=== PATIENT | female | born 1960 | race Caucasian/White ===

== ENCOUNTER 2018-09-27 14:56 | Outpatient (RCR) | payer MEDICARE, OTHER, SELFPAY | END 2018-10-11 23:59 | LOC: NS 14:56 | PROVIDERS: Family Provider Family Medicine; PCP Family Medicine; Visit Provider Family Medicine | DX: E66.01 Morbid (severe) obesity due to excess calories (principal); Z68.41 Body mass index [BMI] 40.0-44.9, adult; Z71.3 Dietary counseling and surveillance | CPT/HCPCS: 97802 ==

== ENCOUNTER 2018-10-31 10:00 | Outpatient (RCR) | payer MEDICARE, OTHER, SELFPAY | END 2018-11-11 23:59 | LOC: NS 10:00 | PROVIDERS: Family Provider Family Medicine; PCP Family Medicine; Visit Provider Family Medicine | DX: E66.01 Morbid (severe) obesity due to excess calories (principal); Z68.41 Body mass index [BMI] 40.0-44.9, adult; Z71.3 Dietary counseling and surveillance | CPT/HCPCS: 97803 ==

== ENCOUNTER → 2018-11-04 | Outpatient (CLI) | payer MEDICARE, OTHER, SELFPAY ==
--- NOTE | 2018-11-04 10:28 | RAD_ITS ---
STUDY: X-RAY - LEFT SHOULDER REASON FOR EXAM: Female, 58 years old. Right shoulder pain. TECHNIQUE: 4 view(s) of the shoulder. COMPARISON: None. FINDINGS: Normal glenohumeral articulation. Normal acromioclavicular joint. Normal acromion. Normal humeral head and visualized proximal humerus. The soft tissue structures are unremarkable. Normal visualized pulmonary apex. RAD/Shoulder min 2 Views IMPRESSION: Normal x-ray examination of the shoulder. Electronically Signed: Lee Mckeon MD at 15:56 EDT Tel , Service support ,
--- NOTE | 2018-11-04 10:28 | RAD_ITS ---
STUDY: X-RAY - CERVICAL SPINE REASON FOR EXAM: Female, 58 years old. Neck pain TECHNIQUE: 5 view(s) of the cervical spine were obtained. COMPARISON: None FINDINGS: Normal anterior atlantoaxial articulation. Normal odontoid process. Normal cervical lordosis. There is disc space narrowing at C4-C5 with anterior and posterior osteophytes. There is disc space narrowing at C6-C7 with anterior and posterior osteophytes. There is multilevel uncinate hypertrophy. There is mild multilevel foraminal narrowing. No fractures. The soft tissue structures are unremarkable. RAD/Cerv Spine 4 or 5 Views IMPRESSION: Multilevel spondylosis no acute fractures Electronically Signed: Conor Watson, at 17:45 EDT Tel , Service support ,
== END | disposition home or self-care (01) ==
LOC: HPRAD 10:27
PROVIDERS: Family Provider Family Medicine; PCP Family Medicine; Referring Provider Physician Assistant; Visit Provider Physician Assistant
DX: M25.512 Pain in left shoulder (principal)
CPT/HCPCS: 72050; 73030

== ENCOUNTER 2018-12-08 10:00 | Outpatient (RCR) | payer MEDICARE, OTHER, SELFPAY | END 2018-12-11 23:59 | LOC: NS 10:00 | PROVIDERS: Family Provider Family Medicine; PCP Family Medicine; Visit Provider Family Medicine | DX: E66.01 Morbid (severe) obesity due to excess calories (principal); Z68.41 Body mass index [BMI] 40.0-44.9, adult; Z71.3 Dietary counseling and surveillance | CPT/HCPCS: 97803 ==

== ENCOUNTER 2019-01-11 09:30 | Outpatient (RCR) | payer MEDICARE, OTHER, SELFPAY | END 2019-01-11 23:59 | LOC: NS 09:30 | PROVIDERS: Family Provider Family Medicine; PCP Family Medicine; Visit Provider Family Medicine | DX: E66.01 Morbid (severe) obesity due to excess calories (principal); Z68.41 Body mass index [BMI] 40.0-44.9, adult; Z71.3 Dietary counseling and surveillance | CPT/HCPCS: 97803 ==

== ENCOUNTER 2019-01-31 11:23 | Outpatient (RCR) | payer MEDICARE, OTHER, SELFPAY | END 2019-02-11 23:59 | LOC: NS 11:23 | PROVIDERS: Family Provider Family Medicine; PCP Family Medicine; Visit Provider Family Medicine | DX: E66.01 Morbid (severe) obesity due to excess calories (principal); Z68.41 Body mass index [BMI] 40.0-44.9, adult; Z71.3 Dietary counseling and surveillance | CPT/HCPCS: 97803 ==

== ENCOUNTER 2019-04-04 14:03 | Outpatient (RCR) | payer MEDICARE, OTHER, SELFPAY ==
[2019-03-28 15:47] VITALS: BMI 40.4
== END 2019-04-13 23:59 ==
LOC: NS 14:03
PROVIDERS: Family Provider Family Medicine; PCP Family Medicine; Visit Provider Family Medicine
DX: Z71.3 Dietary counseling and surveillance (principal); E66.01 Morbid (severe) obesity due to excess calories; Z68.41 Body mass index [BMI] 40.0-44.9, adult
CPT/HCPCS: 97803

== ENCOUNTER 2019-04-05 07:56 | Day surgery (SDC) | payer MEDICARE, OTHER, SELFPAY ==
[2019-03-28 15:47] VITALS: BMI 40.4
--- NOTE | 2019-03-29 01:03 | HP_ITS ---
Intake Vital Signs 03/28/19 Body Mass Index (BMI) 40.4 03/28/19 Height 5 ft 2 in 03/28/19 Weight: 198 lb 03/28/19 Body Mass Index (BMI) 36.2 03/28/19 Blood Pressure 121/77 H 03/28/19 Blood Pressure Location Rt brachial 03/28/19 Respiratory Rate 18 Intake Visit Reasons: change in bowel habits, hx of polyps, reflux Chief Complaint: chest pain Central Supply Clerk Required: No Is patient in pain?: No Allergies morphine Adverse Reaction (Verified 03/28/19 15:45) Vomiting Medications Clonazepam [Klonopin] 0.5 mg PO QHS PRN PRN 07/27/16 [History Confirmed 03/28/19] Prednisone 5 mg PO DAILY 07/27/16 [History Confirmed 03/28/19] cycloBENZAPRine HCl [Flexeril] 10 mg PO QHS 07/27/16 [History Confirmed 03/28/19] amlodipine 5 mg tablet 5 mg PO DAILY 03/28/19 [History Confirmed 03/28/19] bupropion HCl XL 150 mg 24 hr tablet, extended release 150 mg PO QAM 03/28/19 [History Confirmed 03/28/19] losartan 25 mg tablet 100 mg PO DAILY tab 03/28/19 [History Confirmed 03/28/19] pantoprazole 40 mg tablet,delayed release 40 mg PO DAILY #30 tab 03/28/19 [Rx Confirmed 03/28/19] PFSH Medical History Obesity (Chronic) HTN (hypertension) (Chronic) Hyperlipidemia (Chronic) Surgical History Kidney stones (Acute) S/P hysterectomy (Acute) S/P laparoscopic cholecystectomy (Acute) Family History Grandmother Breast cancer Diabetes Father Cancer Hypertension CAD (coronary artery disease) Grandfather CVA (cerebral vascular accident) Social History (Updated 03/29/19 @ 13:03 by Catalina Barron MD) Smoking Status: Never smoker alcohol intake: current alcohol intake frequency: holidays/special occasions only HPI HPI HPI: PAOLO FERGUSON, is a 58 F who presents to the office today for HPI HPI Surgical H&P: Yes HPI: PAOLO FERGUSON, is a 58 F who presents to the office today for constipation/diarrhea. Patient states that in the last month she has had some urgency with loose stools and even had fecal incontinence once 2 weeks ago. Patient states she will gets hard stools about once or twice a week which may last for a couple of days and then she will get loose stools again. Patient does try to get increase fiber she does have a high-fiber cereal and tries to get grains and every meal. Patient denies any family history of colon cancer or any history of blood in the stool. Patient last colonoscopy was in 07/2016 - will try to obtain report, pt unsure if any biopsies were done. Patient also states she has some early satiety and bloating after eating a small amount of food, and some abdominal cramping. Patient states she has had reflux for years since about 2001 has been on ranitidine at night and if she is going to be eating any spicy foods. Patient states she had an EGD was greater than 5 years ago. Patient denies any symptoms on the ranitidine. Patient does elevate the head of her bed as well. Patient also complains of some pelvic floor pain. Patient also thought she felt a bulge in the right peritoneum. Assessment & Plan Problems 1. Gastroesophageal reflux disease K21.9 2. Constipation K59.00 3. Diarrhea R19.7 Plan I have discussed the above with the patient. I have offered the patient EGD and colonoscopy for evaluation. I have explained the risks/benefits of the procedure and described the procedure. I have discussed the risks with the patient, including but not limited to: infection, bleeding, perforation of the GI tract requiring emergency surgery, inability to complete the procedure, injury to any internal organs, complications of anesthesia, etc. - the patient understands and agrees to proceed. I have answered all the patient's questions to the patient's satisfaction and the patient has no further questions. The patient has been given instructions for the colon cleansing preparation. One day of clears, MiraLAX Dulcolax split prep. Addendum: Patient's last colonoscopy was in July [address] Morris only had a small tubular adenoma about 5 mm. Catalina Barron M.D. Pager: [phone] [facility] [address] [place] [address], [facility], [address] [place] [id number] Office: [phone] Orders Orders: EGD 03/28/19 Colonoscopy Today Medications New: pantoprazole 40 mg PO DAILY 30 tabs 3RF Discontinued: ranitidine (Zantac) Discontinued Reason: Discontinued by PCP/other physicians 150 mg PO BID Plan Detail Follow Up Will schedule EGD/colonoscopy Coding Level of Care Code Off vis,new,level 3 Diagnoses Gastroesophageal reflux disease K21.9 Constipation K59.00 Diarrhea R19.7 03/29/19 1303 <Electronically signed by Catalina Snyder am, MD> Date _ Catalina Barron MD I have re-examined the patient. There are no clinical changes since date of exam.
--- NOTE | 2019-04-05 | GASB_PTH ---
PATIENT: PAOLO FERGUSON LOC: EN U#:[id number] AGE/SX: 58/F ROOM: RE04/05/[address]: Dr. Catalina Barron MD : 1960 BED: DIS: 04/05/2019 SPEC #: [id number] RECD: 04/05/19 12:12 STATUS: SHARRI JACK #: [id number] DAPHNE: 04/05/19 00:[address]: Catalina Barron DEPT: SURGICAL PATHOLOGY RECD BY: Virgilio Cheung ENTERED: 04/05/19 12:13 SP TYPE: Gastric Bx OTHR DR: Dr. Conor Luciano MD Tissues: A - Gastric mucous membrane B - Gastric fundus C - Gastric mucous membrane Procedures: Special Stain Group II Surgery Specimen Level IV Alcian Blue/PAS (control) HEADER OPERATION: [place] [place] DIAGNOSIS: GERD, constipation, diarrhea TISSUE SUBMITTED: A - Antral biopsy for H. pylori and pathology, B - Fundic lesions biopsy, C - GE junction biopsy MICROSCOPIC DIAGNOSIS A. Antral biopsy: Mild gastritis. See microscopic description and comment. B. Fundic lesions, biopsy: Mild gastritis. See microscopic description.. C. GE junction, biopsy: A fragments of gastroesophageal mucosa with moderate chronic inflammation. Intestinal metaplasia (goblet cell metaplasia) is not identified. See comment. SJ:rg 04/06/19 COMMENT A. The results of immunohistochemistry for Helicobacter pylori will be reported separately ([id number]). C. Alcian blue/PAS stain with matched control is used in the evaluation of the specimen. MICROSCOPIC DESCRIPTION Slides are reviewed. A & B. The specimen shows fragments of gastric mucosa with chronic inflammatory cell infiltrates in the lamina propria consisting of lymphocytes and plasma cells, consistent with mild chronic gastritis. GROSS DESCRIPTION A - Received in fixative is one container labeled with the patient's name and designated antral biopsy. The specimen consists of one irregular fragment of light chamorro soft tissue that measures 0.4 x 0.4 x 0.1 cm. The specimen is totally submitted in one cassette. B - Received in fixative is one container labeled with the patient's name and designated fundic lesions biopsy. The specimen consists of one irregular fragment of light chamorro soft tissue that measures 0.4 x 0.4 x 0.1 cm. The specimen is totally submitted in one cassette. C - Received in fixative is one container labeled with the patient's name and designated GE junction biopsy. The specimen consists of one irregular fragment of light chamorro soft tissue that measures 0.3 x 0.3 x 0.1 cm. The specimen is totally submitted in one cassette. / LIANET:helder 04/05/19 TC:3 CPT: 65189 x3, 01571
[2019-04-05 08:13] VITALS: BP 135/83; PULSE 76; RESP 16; TEMP 36.2; O2SAT 99; BMI 35.8
[2019-04-05] MEDS: Lactated Ringers 1,000 ML 100 ML IV (08:31)
--- NOTE | 2019-04-05 09:00 | IMM_PTH ---
PATIENT: PAOLO FERGUSON LOC: EN U#:[id number] AGE/SX: 58/F ROOM: RE04/05/[address]: Dr. Catalina Barron MD : 1960 BED: DIS: 04/05/2019 SPEC #: [id number] RECD: 04/05/19 13:12 STATUS: SHARRI REQ #: [id number] DAPHNE: 04/05/19 09:[address]: Catalina Barron DEPT: IMMUNOHISTOCHEMISTRY RECD BY: Kassidy Mendoza ENTERED: 04/05/19 13:13 SP TYPE: IMMUNO OTHR DR: Dr. Conor Luciano MD Tissues: A - Stomach, NOS Procedures: H Pylori (initial) PHYSICIAN & INSTITUTION [place] [address] SPECIMEN INFORMATION: Tissue Source: A - Antral biopsy Clinical Info: GERD, constipation, diarrhea Specimen Number: [id number] CPT code: 07681 METHODOLOGY: Deparaffinized sections of prefer/formalin-fixed tissue or PAP/DQ stained slides are incubated with monoclonal/polyclonal antibodies/oligonucleotide probes. Localization is made via biotin free immunoperoxidase method. Appropriate controls are performed and reacted as expected. Results on target cell population are indicated in the following table: RESULTS: ANTIBODY / CLONE RESULT Block A H Pylori (polyclonal) negative These tests were developed and their performance characteristics determined by [facility]. They may not have been cleared or approved by the U.S. Food and Drug Administration. The FDA has determined that such clearance or approval is not necessary. INTERPRETATION: A. Antral biopsy: Negative for Helicobacter pylori organisms. LIANET:helder 04/06/19
--- NOTE | 2019-04-05 10:13 | OP.ENDO_ITS ---
04/05/2019 Conor Luciano [address] [place] [address] [place] [address] Re : Upper GI endoscopy procedure for [facility] Dear Dr. Luciano This procedure was performed on Friday, April 05, 2019. My impressions and recommendations are as follows: Impressions : - Z-line irregular, 35 cm from the incisors. Biopsied. - Erythematous mucosa in the gastric body and antrum. Biopsied. - Bilious gastric fluid. - Discolored and white patches mucosa in the gastric fundus. Biopsied. - Normal examined duodenum. Recommendations : - Await pathology results. - Discharge patient to home. - Resume previous diet. - Recommend acid suppression medication indefinitely. - Use sucralfate tablets 1 gram PO QID for 1 month. - Continue present medications. My findings are described in the full procedure note, which is enclosed. If I can be of further assistance, please feel free to contact me at Doctor phone number(s): , Work: . Sincerely, MD Catalina Bahena MD 04/05/2019 10:12:49 AM This report has been signed electronically.
[2019-04-05 10:14] VITALS: BP 135/83; BP 98/67; PULSE 72; RESP 16; TEMP 36.4; O2SAT 95
--- NOTE | 2019-04-05 10:15 | OP.ENDO_ITS ---
04/05/2019 Conor Luciano [address] [place] [address] Re : Colonoscopy procedure for [facility] Dear Dr. Luciano This procedure was performed on Friday, April 05, 2019. My impressions and recommendations are as follows: Impressions : - Diverticulosis in the sigmoid colon. - The entire examined colon is normal on direct and retroflexion views. - No specimens collected. Recommendations : - Discharge patient to home. - Resume previous diet. - Continue present medications. - Repeat colonoscopy in 10 years for screening purposes. My findings are described in the full procedure note, which is enclosed. If I can be of further assistance, please feel free to contact me at Doctor phone number(s): , Work: . Sincerely, MD Catalina Bahena MD 04/05/2019 10:15:27 AM This report has been signed electronically.
[2019-04-05 10:20] VITALS: BP 135/83; BP 97/60; PULSE 70; RESP 16; O2SAT 99
[2019-04-05 10:25] VITALS: BP 135/83; BP 99/68; PULSE 70; RESP 16; O2SAT 97
[2019-04-05 10:30] VITALS: BP 102/66; BP 135/83; PULSE 70; RESP 16; TEMP 36.2; O2SAT 98
[2019-04-05 10:48] VITALS: BP 135/83
== END 2019-04-05 11:02 | disposition home or self-care (01) ==
LOC: EN 07:56 → AC 07:57
PROVIDERS: Family Provider Family Medicine; PCP Family Medicine; Referring Provider Family Medicine; Visit Provider Surgery
PROC: 0DJD8ZZ Inspection of Lower Intestinal Tract, Via Natural or Artificial Opening Endoscopic (ICD-10-PCS; CPT 45378; principal; 2019-04-05 08:55)
DX: K29.70 Gastritis, unspecified, without bleeding (principal); K31.89 Other diseases of stomach and duodenum; K21.9 Gastro-esophageal reflux disease without esophagitis; K57.30 Diverticulosis of large intestine without perforation or abscess without bleeding; K44.9 Diaphragmatic hernia without obstruction or gangrene; E66.9 Obesity, unspecified; Z68.36 Body mass index [BMI] 36.0-36.9, adult; I10 Essential (primary) hypertension; F41.9 Anxiety disorder, unspecified; F32.9 Major depressive disorder, single episode, unspecified; Z87.19 Personal history of other diseases of the digestive system; Z87.442 Personal history of urinary calculi; Z90.49 Acquired absence of other specified parts of digestive tract; Z79.899 Other long term (current) drug therapy
CPT/HCPCS: 43239; 45378; 88305; 88313; 88342; J7120; J2405

== ENCOUNTER → 2019-07-25 09:06 | Outpatient (CLI) | payer MEDICARE, OTHER, SELFPAY ==
[2019-07-11 15:22] VITALS: BMI 36.7
--- NOTE | 2019-07-25 09:11 | ECHOD_ITS ---
Reason For Study: Arrhythmia Procedure This was a 2D Doppler, Color Flow transthoracic echocardiogram. Exam performed in department. Left Ventricle Normal size and thickness. The estimated ejection fraction is 65 %. Normal diastology for age. No regional wall motion abnormalities noted. Right Ventricle Normal size and thickness. Normal systolic function. Atria Normal left atrium. Normal right atrium. Normal atrial septum. Mitral Valve The mitral valve is structurally normal. No prolapse or stenosis seen. Tricuspid Valve Normal tricuspid valve. Trivial tricuspid valve insufficiency. Unable to estimate RV systolic pressure due to insufficient tricuspid regurgitant envelope. Aortic Valve Normal aortic valve. Trisinus/trileaflet aortic valve. Pulmonic Valve Normal pulmonic valve. Great Vessels Normal aortic root. Normal arch. Normal inferior vena cava. Inferior vena cava collapse with sniff. Pericardium/Pleural No pericardial effusion. MMode/2D Measurements & Calculations LVIDd: 4.6 cm IVSd: 1.2 cm LA dimension: 3.7 cm LVIDs: 3.1 cm LVPWd: 1.2 cm FS: 31.7 % LAV(MOD-bp): 44.3 ml LA A4 area: 15.7 cm2 RA A4 area: 12.7 cm2 LAV(MOD-bp) Indexed: 23.3 ml/m2 LAV(MOD-sp2): 40.3 ml LAV(MOD-sp4): 44.2 ml Time Measurements MV dec time: 0.24 sec Doppler Measurements & Calculations MV E max kennedy: 93.8 cm/sec Lat Peak E' Kennedy: 8.1 cm/sec Med Peak E' Kennedy: 6.5 cm/sec MV A max kennedy: 83.0 cm/sec E/E' lat: 11.6 E/E' med: 14.5 MV E/A: 1.1 MV V2 max: 87.6 cm/sec MV P1/2t max kennedy: 88.3 cm/sec Ao V2 max: 126.6 cm/sec MV max P.1 mmHg MV P1/2t: 60.0 msec Ao max P.4 mmHg MV V2 mean: 58.5 cm/sec MV dec slope: 431.2 cm/sec2 Ao V2 mean: 84.9 cm/sec MV mean P.5 mmHg MVA(P1/2t): 3.7 cm2 Ao mean P.2 mmHg MV V2 VTI: 21.7 cm Ao V2 VTI: 23.0 cm LV V1 max: 99.2 cm/sec PA V2 max: 113.6 cm/sec LV V1 max P.9 mmHg PI dec slope: 173.8 cm/sec2 LV V1 mean P.3 mmHg LV V1 mean: 71.7 cm/sec LV V1 VTI: 21.9 cm Interpretation Summary The estimated ejection fraction is 65 %. Normal diastology for age. Trivial tricuspid valve insufficiency. Unable to estimate RV systolic pressure due to insufficient tricuspid regurgitant envelope. There is no comparison study available. Ordering Physician: Geraldo Darden Referring Physician: Conor Luciano Performed By: Amaury Ovalle RCS
[2019-07-25 10:25] LABS: Absolute Lymphocyte Count 2.67 X10^3/uL (0.83-4.51); Absolute Neutrophil Count 6.4 X10^3/uL (2.0-7.7); Basophil# 0.06 X10^3/uL; Basophil% 0.6 % (0-1); Hematocrit 45.9 % (37-47); Hemoglobin 14.7 g/dL (12.0-15.0); Lymphocyte # 2.67 X10^3/ul (4.0); Lymphocyte % 26.7 % (19-41); Mean Corpuscular Hgb 28.1 pg (27.0-32.0); Mean Corpuscular Volume 87.6 fL (81-99); Mean Platelet Vol. 9.9 fl (6.2-12.0); Monocyte# 0.68 X10^3/uL; Monocyte% 6.8 % (0-10); NRBC Flagged by Analyzer 0 % (0-5); Neutrophil # 6.37 X10^3/uL (2.7-7.7); Neutrophil % 63.6 % (47-70); Platelet Count 316 K/mm3 (150-450); RBC Distribution Width CV 13.6 % (11.6-14.6); RBC Distribution Width SD 43.6 fl (35.1-43.9); Red Blood Count 5.24 M/mm3 (4.2-5.4)
[2019-07-25 11:08] LABS: AST(SGOT) 17 U/L (15-37); Alanine Aminotransfer ALT/SGPT 43 U/L (13-56); Alkaline Phosphatase 111 U/L (45-117); Anion Gap 5 (5-15); BUN 21 mg/dL (7-18); BUN/Creat Ratio 22.5 RATIO (10-20); Bilirubin, Direct 0.11 mg/dL (0.00-0.30); Calcium,Total 9.7 mg/dL (8.5-10.1); Chloride 106 mmol/L (98-107); Cholesterol 180 mg/dL (200); Creatinine, Serum 0.94 mg/dL (0.55-1.02); EST Glomerular Filtration Rate 66 mL/min (>60); Est Glom Filt Rate - Afr Amer 79 mL/min (>60); Globulin 3.6 g/dL (2.2-4.2); Glucose 100 mg/dL (74-106); High Density Lipoprotein 85 mg/dL; Magnesium 2.3 mg/dL (1.6-2.6); Potassium 4.1 mmol/L (3.5-5.1); Protein, Total 7.6 g/dL (6.4-8.2); Sodium Level 141 mmol/L (136-145); T4 Total, Thyroxin 9.4 ug/dL (4.8-13.9); Thyroid Stim Hormone (TSH) 1.84 uIU/mL (0.358-3.74); Triglycerides 133 mg/dL; Very Low Density Lipoprotein 27 mg/dL (5-40)
== END ==
PROVIDERS: PCP Family Medicine; Referring Provider Internal Medicine Cardiovascular Disease; Visit Provider Internal Medicine Cardiovascular Disease
DX: R00.2 Palpitations (principal); E78.00 Pure hypercholesterolemia, unspecified; R42 Dizziness and giddiness
CPT/HCPCS: 36415; 80048; 80061; 80076; 83735; 84436; 84443; 85025; 93306

== ENCOUNTER 2019-08-14 13:29 | Outpatient (RCR) | payer SELFPAY ==
[2019-07-11 15:22] VITALS: BMI 36.7
== END 2019-08-14 23:59 | disposition home or self-care (01) ==
LOC: NS 13:29
PROVIDERS: PCP Family Medicine
DX: Z71.3 Dietary counseling and surveillance (principal)
CPT/HCPCS: 97803

== ENCOUNTER → 2020-01-12 09:30 | Outpatient (CLI) | payer MEDICARE, OTHER, SELFPAY ==
[2019-07-11 15:22] VITALS: BMI 36.7
--- NOTE | 2020-01-12 09:36 | MRI_ITS ---
STUDY: MRI RIGHT ANKLE WITHOUT CONTRAST REASON FOR EXAM: Chronic right arch pain, flat foot, swelling, old injury, evaluate right tibialis posterior tendon. TECHNIQUE: Standardized fat and water weighted pulse sequences were obtained in all 3 orthogonal planes. COMPARISON: None. FINDINGS: There is edema in the subcutis adipose space. There is a small ganglion cyst anterior to the deltoid ligament (T2 coronal image 18) measuring 0.7 cm in length. There is tendinosis and a longitudinal split of the perimalleolar posterior tibialis tendon (T2 axial images 14-19) with a very small volume of fluid in the posterior tibialis tendon sheath. There is flatfoot deformity. There is a very small volume of fluid in the proximal flexor digitorum longus tendon sheath (T2 axial images 12-15). The flexor digitorum longus tendon is morphologically normal. Normal flexor hallucis longus tendon. There is a very small volume of fluid in the submalleolar peroneal tendon sheath (T2 axial image 18). The peroneus longus and brevis tendons are morphologically normal. Normal tibialis anterior tendon. Normal extensor hallucis longus tendon. Normal extensor digitorum longus tendons. Normal Achilles tendon and teno-osseous insertion. There is a small posterior calcaneal enthesophyte. Normal plantar fascia. There is a plantar calcaneal enthesophyte. Normal intrinsic muscles of the rearfoot. Normal distal tibiofibular syndesmotic ligamentous complex. Normal lateral ligamentous complex. There is a ganglion cyst dorsal to the distal talus extending into the sinus tarsi (inversion recovery sagittal images 10-12) measuring 1.6 cm in AP dimension. There is mild bone edema in the calcaneus adjacent to the sinus tarsi. Normal deltoid ligamentous complexes. Normal plantar calcaneonavicular (spring) ligament. Normal tibiotalar articulation. Normal talar dome. Normal subtalar articulations. There is a small os trigonum. Normal talonavicular articulation. Normal calcaneocuboid articulation. Normal navicular-cuneiform articulations. MRI/Lower Ext Joint Only (Routine) IMPRESSION: Longitudinal split, tendinosis and very mild tenosynovitis of the posterior tibialis tendon. Very mild flexor digitorum longus tenosynovitis. Very mild peroneal tenosynovitis. Ganglion cyst dorsal to the distal talus extending into the sinus tarsi. Small ganglion cyst anterior to the deltoid ligament. Electronically Signed: Femi Roca MD at 11:25 EDT Tel , Service support ,
== END ==
PROVIDERS: PCP Family Medicine; Referring Provider Orthopaedic Surgery; Visit Provider Orthopaedic Surgery
DX: M67.971 Unspecified disorder of synovium and tendon, right ankle and foot (principal)
CPT/HCPCS: 73721

== ENCOUNTER → 2020-11-19 12:18 | Outpatient (CLI) | payer MEDICARE, OTHER, SELFPAY ==
[2020-02-14 11:09] VITALS: BMI 36.6
--- NOTE | 2020-11-19 12:30 | RAD_ITS ---
STUDY: X-RAY - ABDOMEN/PELVIS REASON FOR EXAM: Female, 60 years old. ABD PAIN TECHNIQUE: Single AP view of the abdomen / pelvis. COMPARISON: Comparison is made with prior study dated 04/06/2017. FINDINGS: Normal visualized lung bases. There is an abundance of fecal material throughout the colon. Surgical clip is seen overlying the region of the bladder. The visualized liver, spleen and kidneys are grossly normal in size and morphology. Normal soft tissue structures. Normal visualized osseous structures. RAD/Abdomen Single View IMPRESSION: Large amount of fecal material is seen in the colon. Electronically Signed: Brown House MD at 13:24 EDT , Service support ,
== END ==
PROVIDERS: PCP Family Medicine; Referring Provider Urology; Visit Provider Urology
DX: R30.0 Dysuria (principal); R10.84 Generalized abdominal pain
CPT/HCPCS: 74018; 87086

== ENCOUNTER 2021-04-14 14:52 | Outpatient (RCR) | payer MEDICARE, OTHER, SELFPAY | END 2021-05-13 23:59 | LOC: NS 14:52 | PROVIDERS: PCP Family Medicine | DX: E66.9 Obesity, unspecified (principal); Z68.38 Body mass index [BMI] 38.0-38.9, adult; Z71.3 Dietary counseling and surveillance | CPT/HCPCS: 97802 ==

== ENCOUNTER 2021-07-25 15:00 | Outpatient (RCR) | payer MEDICARE, OTHER, SELFPAY ==
--- NOTE | 2021-06-24 17:26 | HP.PTEVAL ---
Patient's Visit Information PAOLO FERGUSON is a 60 year old F referred to Physical Therapy by Dr. Brian Baker MD with a diagnosis of OA R foot and ankle, s/p hardware removal April 2021. Date of Evaluation: 06/24/21 Physical Therapist: Ramone Nugent, DPT, OCS, CSCS - Visit Plan Frequency: 2x /Week Duration: 2-4 Weeks Plan: 2x/week for 2 weeks per script...p[lease.. 1. manual therapy of STM ot R foot and ankle with mobs of DF and stretch into DF, inv/ev. 2. Teach and progress R ankle strength. 3. Ensure gait progression using forefoot on steps and pushing off during gait. Ensure weaning boot effectively. - Subjective Dr. Baker ordered therapy. One year ago did major reconstruction fusion on R ankle and plates and screws due to chronic pain including breaking heal and doing bone graft. This past May 15 he took out all the hardware due to nerve irritation casuing pain and numbness and tingling. It does feel better already. Was in boot until yesterday. Now can get rid of boot and wear regular shoe and get therapy. it feels stiff and sore from being in boot for 5 weeks. Pain this week has been to 2/10 medial ankle R and heel. Feels swollen on outside edge. Not employed. Sleep is not great due to insomnia, not ankle. Basic aDLsa re getting done. Hobbies include archery which she started this past fall, hard to get to basement where she has a range. Hard to go down steps, hard to be on feet so much. Wants to be able to camp in the summer. No ankle exercises. Is a member at [employer] and has only bee in one time lately and she did upper body. Wants to do leg machines. - Pain R medial ankle Pain Intensity (Out of 10): 0 Pain Intensity Range: 0, 2 - Objective R antalgia in gait avoiding push off until cued then does better. Steps reciprocal but avoids forefoot WB descneding onto R. AROM R ankle 0 DF, 50 PF, 20 inv and 12 ev...L ankle is 4 DF, 55 PF, 28 inv and 20 eversion. Tender to touch arch area R foot and medial ankle moderately. strength 4-/5 inv/ev/DF, PF able to do heel raise but painful in forefoot and hesitant. [id number] 2/3 patella adn achilles B. Strength B knees flexiona nd extension and hips WNL and strength at 4-/5. big toe ext adn flexion symmetrical B and 4 strength without pain. metatarsals moving well. incision not visualized as patient said it is healed well, palpated with minimal scar tissue. - Balance/Special Test Scores Lower Extremity Functional Score: 42 - Goals Goal 1:: Walk community without gait deviations Goal Time Frame: 2-4 Weeks Goal 2:: steps reciprocally with using forefoot. Goal Time Frame: 2-4 Weeks Goal 3:: Patient feel I in management of condtion Goal Time Frame: 2-4 Weeks - Rehabilitation Potential Physical Therapy Diagnosis: poor mobility due to foot history. Rehabilitation Potential: Fair - Anticipated Interventions Patient/Client Instruction: Educate patient on: Condition, Plan of Care For the Purpose of:: To decrease pain, To increase ROM, To improve muscle performance and motor function, To increase tolerance to activity/condition/position, To improve ability of physical actions for home/community/work/leisure, To improve gait and locomotor functions Therapeutic Exercise to Include: Strength training, Balance training, Flexibilty training, Gait and locomotor training, Passive ROM, Active ROM For the Purpose of:: To decrease pain, To increase ROM, To improve muscle performance and motor function, To increase tolerance to activity/condition/position, To improve ability of physical actions for home/community/work/leisure Manual Therapy Techniques to Include: Mobilization, Passive ROM, Soft tissue mobilization For the Purpose of:: To decrease pain, To increase ROM Thank you for the opportunity to evaluate your patient. For Medicare and Medicare HMO plans, please review the plan of care and approve it. It will need to be FAXED BACK to us at [phone] for Medicare purposes. For Medicare only, by signing this I certify the plan of care. Please let me know if there are questions or concerns regarding this plan of care. Physician Signature: Date:
--- NOTE | 2021-07-25 15:31 | HP.PTDCSUM ---
It has been my pleasure to treat PAOLO FERGUSON referred by Dr. Brian Baker MD, with the diagnosis of OA R foot and ankle, s/p hardware removal April 2021 for a total of 4 visit(s). Discharge Date: 07/25/21 Please see the following information for a summary of their discharge status. Subjective: Band and HEP going well and no problem, getting easier, using OTB. Curling toes has gotten easier and feels like motion is better. Morning is still a little stiff and sore until she starts moving. Puts shoes on right away. Sleep is OK as far as foot goes. Activities are pretty normal. Steps feel good. No f./u with Dr. Baker. R medial ankle Pain Intensity (Out of 10): 2 % Improvement: 85 Objective/Function: 1 DF degree,15 inv and 10 eversion on R. 4/5 strength without pain. tender 5th met mildly and some sticking scar tissue on top of foot incsision which patient will continue to work on. Walks normal. Steps reciprocal and without difficulty. SLE R 3-5 seconds vs 10+ L. overall doing well and willk continue to work on deficits at home. Goal 1:: Walk community without gait deviations Goal Progress: Goal Met Goal 2:: steps reciprocally with using forefoot. Goal Progress: Goal Met Goal 3:: Patient feel I in management of condtion Goal Progress: Goal Met Plan: d/c to HEP If there are questions or concerns regarding this patient's physical therapy, please feel free to call me at [phone]. Thank you for the referral of this patient. Sincerely, Ramone Nugent, DPT, OCS, CSCS Balance/Gait/Functional tests - Balance/Special Test Scores Lower Extremity Functional Score: 59
== END 2021-07-25 19:00 | disposition home or self-care (01) ==
LOC: PT 15:00
PROVIDERS: PCP Family Medicine; Referring Provider Orthopaedic Surgery; Visit Provider Orthopaedic Surgery
DX: M19.071 Primary osteoarthritis, right ankle and foot (principal)
CPT/HCPCS: 97110; 97140; 97161; 97164

== ENCOUNTER 2021-09-01 13:00 | Outpatient (RCR) | payer MEDICARE, OTHER, SELFPAY ==
--- NOTE | 2021-08-11 18:44 | HP.PTEVAL ---
Patient's Visit Information PAOLO FERGUSON is a 61 year old F referred to Physical Therapy by Dr. Angel Sumner MD with a diagnosis of NECK PAIN. Date of Evaluation: 08/11/21 Physical Therapist: Melinda Manrique PT, Cert MDT - Visit Plan Frequency: 2-3x /Week Duration: 4-6 Weeks Plan: CHECK AUTH AND DOCUMENT # OF VISITS APPROVED AND EXPIRATION DATE. US X 6. POSTURE CORRECTION/STRENGTHENING, INSTRUCTION IN APPROPRIATE BODY MECHANICS AND ACTIVITY MODIFICATIONS. JEFFREY UE ROM, STRETCHING AND STRENGTHENING. HEP INSTRUCTION. - Subjective Diagnosis: CERVICALGIA. Work/Leisure: UNEMPLOYEED. Disability: YES - SINCE 2014 FOR SEVERE ARTHRITIS, SJOGRENS, FIBROMYALGIA. Present symptoms: LEFT NECK, SHLD, ARM AND FOREARM PAIN. INTERMITTENT LEFT UE NUMBNESS AND TINGLING. CHRONIC HEADACHES. INTERMITTENT LEFT JAW TINGLING. Present since: CHRONIC. Pain Scale: Worst - 8/10 Least - 3/10. Currently: 10/21. Commenced as a result of: NO APPARENT REASON OTHER THAN L ARM INJURY 20 YEARS AGO FROM FALL AND ARTHRITIS. Symptoms at onset: L SHLD. Worse: LIFTING, ROLLING OVER IN BED ON L SIDE, RESTING ARM ON CONSOLE IN CAR, SHOOTING COMPOUND BOW. Better: SITTING IN A RECLINER WITH HEAD SUPPORTED AND PILLOW BEHIND SHLD, IBUPROFEN, ICE AND HEAT. Disturbed sleep: YES. Previous history/Previous treatment: CHIROPRACTOR A FEW WKS AGO FOR THE FIRST TIME AND IT MADE IT WORSE. YEARS AGO HAD SOME PT. NO NECK SURGERY. NO SHLD SX. LAST WEDNESDAY HAD INJECTIONS IN FRONT OF LEFT SHLD AND ON TOP OF L SHLD AND IT HELPED FOR ABOUT 3 DAYS THEN BACK TO BASELINE. Dizziness: ONCE IN AWHILE. Tinnitis: YES - CHRONIC. Nausea: NO. Shortness of Breath: YES - CHRONIC. Difficulty Swollowing: NO. Gait: NORMAL. Accidents: SEE FALL ABOVE. Unexplained weight loss: NO. Imaging: L SHLD AND NECK X-RAYS AND MRI'S AT [facility] ORDERED BY DR. SUMNER. PATIENT REPORTS NO SURGERY RECOMMENDED. REPORTS DR. SUMNER THINKS THE PAIN IN HER SHLD IS COMING FROM HER NECK BUT IF NOT, PATIENT REPORTS DR. SUMNER MIGHT RECOMMEND SHLD SX. PMH/Recent major surgery: FIBROMYALGIA, HTN, SJOGRENS, SEVERE ARTHRITIS. DAILY PREDNISONE USE. ANXIETY, HIGH. CHOLESTEROL. RIGHT ANKLE FUSION FEB 2020 - MAY 2021 HAD MOST OF HARDWARE REMOVED AND STARTED PT HERE AT RECENTLY AND IS NOW ON HOME PT PROGRAM. VERTIGO. 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 TRIES TO COME 3 TIMES A WEEK AND USES GYM MACHINES. STATES DR. SUMNER TOLD HER TO STAY AWAY FROM ANY HEAVY LIFTING ON UPPER BODY ON HER OWN AND TO GO THROUGH PT FOR UPPER BODY STRENGTHENING. STATES SHE IS USING BIKE AND TREADMILL ON HER OWN. ORIGINALLY GYM PROGRAM WAS SET UP BY [employer] SPECIALIST PRE-COVID. - Objective Sitting Posture/Standing Posture: POOR. FH. RSH'S. NO TORTICOLLIS. Active Correction of posture: WORSE. Other Observations: INDEP GAIT INTO PT WITHOUT ANY ASSISTIVE DEVICES OR GROSS DEVIATIONS NOTED. RODE THE BIKE BEFORE PT TODAY. Motor deficit: RIGHT HAND DOMINANT WITH A RIGHT SENIOR ELECTRONICS DESIGN ENGINEER STRENGTH OF 35 LBS AND LEFT 15 LBS. RIGHT UE GROSSLY 5/5 EXCEPT SHLD 4/5. LEFT UE GROSSLY 4/5 EXCEPT SHLD 2+/5. Sensory deficit: JEFFREY UE LIGHT TOUCH SENSATION GROSSLY INTACT AND SYMMETRICAL. ROM deficit: PROM L SHLD IN SUPINE: 134 FLEXION IN LYING AND 97 DEG ABD IN LYING. C/O INCRASED PAIN WITH TESTING. Reflexes: JEFFREY UE'S 2/3. Dural Signs: POSITIVE L UE. Cervical Mvmt Loss: Flex: NIL. Pro: NIL. Ext: MOD. Ret: CHELSEA - INCREASES L SHLD PAIN. RSB: MIN - INCRASES NECK PAIN. LSB: MIN - INCRASES NECK PAIN. R Rot: MIN. L Rot: MOD. Postural strength: POOR. Palpation: INCREASED MUSCLE TONE JEFFREY POSTERIOR CERVICAL MUSCULATURE BUT NO ACUTE NECK OR UPPER BACK TENDERNESS WITH LIGHT PALPATION. - Balance/Special Test Scores Oswestry Neck Score: 23 - Goals Goal 1:: DECREASE C/O NECK AND L UE SX'S. Goal Time Frame: 4-6 Weeks Goal 2:: IMPROVE LIFTING, READING, SLEEP, WORK, DRIVING AND RECREATIONAL FUNCTION Goal Time Frame: 4-6 Weeks Goal 3:: INSTRUCT IN PROPHYLAXIS Goal Time Frame: 4-6 Weeks - Anticipated Interventions Patient/Client Instruction: Educate patient on: Condition, Plan of Care, Risk Factors For the Purpose of:: To improve self management Therapeutic Exercise to Include: Strength training, Body mechanics, Postural training, Flexibilty training, Neuromotor development, Scapular Strength/Stabilization For the Purpose of:: To decrease pain, To improve muscle performance and motor function, To increase tolerance to activity/condition/position, To improve ability of physical actions for home/community/work/leisure TENS: Yes IF ES: Yes Cryotherapy (ice pack, ice massage): Yes Thermo therapy (hot pack): Yes Ultrasound (thermal/non thermal): Yes For the Purpose of:: To decrease pain, To improve nutrient delivery to tissue Thank you for the opportunity to evaluate your patient. For Medicare and Medicare HMO plans, please review the plan of care and approve it. It will need to be FAXED BACK to us at [phone] for Medicare purposes. For Medicare only, by signing this I certify the plan of care. Please let me know if there are questions or concerns regarding this plan of care. Physician Signature: Date:
== END 2021-09-01 19:00 | disposition home or self-care (01) ==
LOC: PT 13:00
PROVIDERS: PCP Family Medicine; Referring Provider Orthopaedic Surgery; Visit Provider Orthopaedic Surgery
DX: M54.2 Cervicalgia (principal)
CPT/HCPCS: 97035; 97162; 97530

== ENCOUNTER 2022-01-17 13:25 | Emergency (ER) | payer MEDICARE, OTHER, SELFPAY ==
[2022-01-17 13:25] VITALS: BP 154/113; PULSE 82; RESP 16; TEMP 36.6; O2SAT 100; BMI 41.3
--- NOTE | 2022-01-17 13:34 | RAD_ITS ---
STUDY: X-RAY - RIGHT HAND REASON FOR EXAM: Female, 61 years old. Pain TECHNIQUE: 3 view(s) of the hand. COMPARISON: None. FINDINGS: Normal radiocarpal articulation. Normal distal radioulnar joint. Normal visualized carpal bones. Normal carpal articulations There is degenerative arthrosis of the carpometacarpal articulation of the thumb with lateral subluxation of the first metacarpus. Normal second through fifth carpometacarpal joints. Normal metacarpi. Normal metacarpophalangeal joint of the thumb. Normal interphalangeal joint of the thumb. Normal proximal and distal phalanges of the thumb. Normal metacarpophalangeal joints of the second through fifth fingers. Normal proximal and distal interphalangeal joints of the second through fifth fingers. Normal phalanges of the second through fifth fingers. The soft tissue structures are unremarkable. RAD/Hand Min 3 Views IMPRESSION: Degenerative arthrosis of the carpometacarpal joint of the thumb. Electronically Signed: Lee Mckeon MD at 14:06 EDT ,
--- NOTE | 2022-01-17 13:35 | EX.ED.UPPERE ---
HPI History of Present Illness Chief Complaint: Upper Extremity Injury Detail of Chief Complaint: Pain and swelling to right hand and right ring finger Informant: patient Narrative Narrative: Patient presents to the emergency department sudden onset of pain in her right ring finger that occurred this morning. Patient complains of ecchymosis and bruising now. She denies any trauma to the hand. She was seen at urgent care and referred to the ER. Patient does have history of easy bruising but not on any blood thinners. [facility] Medical History (Updated 01/17/22 @ 14:[address] Vicki Eller, DO) Anxiety and depression Difficulty sleeping Dizziness Essential hypertension Fibromyalgia GERD (gastroesophageal reflux disease) Hyperlipidemia Monoarticular arthritis Obesity Palpitations Home Medications amlodipine 5 mg tablet (Norvasc) 5 mg PO DAILY 03/28/19 [History Last Taken 04/05/19 06:45 5 MG] albuterol sulfate 90 mcg/actuation aerosol inhaler (Ventolin HFA) 2 puff inhalation Q4H PRN 07/05/19 [History Last Taken Unknown] atorvastatin 10 mg tablet 10 mg PO DAILY 07/05/19 [History Last Taken Unknown] bupropion HCl 150 mg tablet,12 hr sustained-release 150 mg PO BID 07/05/19 [History Last Taken Unknown] clonazepam 0.5 mg tablet 0.5 mg PO TID PRN Anxiety 07/05/19 [History Last Taken Unknown] meclizine 25 mg tablet 25 mg PO TID PRN 07/05/19 [History Last Taken Unknown] losartan 100 mg tablet 100 mg PO DAILY 07/11/19 [History Last Taken Unknown] prednisone 5 mg tablet 5 mg PO DAILY 07/11/19 [History Last Taken Unknown] cyclobenzaprine 10 mg tablet 10 mg PO QHS PRN 02/14/20 [History Last Taken Unknown] omeprazole 20 mg capsule,delayed release 20 mg PO QHS 02/14/20 [History Last Taken Unknown] triamcinolone acetonide 0.025 % topical cream 1 applic topical .QID PRN 02/14/20 [History Last Taken Unknown] Allergy/AdvReac Type Severity Reaction Status Date / Time morphine AdvReac Vomiting Verified 02/10/21 10:50 Family History Grandmother Breast cancer Diabetes Father Cancer Hypertension CAD (coronary artery disease) Grandfather CVA (cerebral vascular accident) Surgical History Kidney stones S/P hysterectomy S/P laparoscopic cholecystectomy Social History Smoking Status: Never smoker alcohol intake: current alcohol intake frequency: holidays/special occasions only ROS ROS ED Review of Systems ROS Unobtainable: other Constitutional Constitutional ED: Reports lethargy; Denies chills, fever(s), sweats or weight loss Eyes Eyes: Denies blurry vision, change in vision or diplopia ENT ENT ED: Denies rhinorrhea or sore throat Cardiovascular Cardiovascular: Reports chest pain and racing heartbeat; Denies orthopnea Respiratory/Chest Respiratory/Chest: Reports dyspnea and dyspnea on exertion; Denies cough, orthopnea or sputum Gastrointestinal Gastrointestinal: Denies abdominal pain, diarrhea, nausea or vomiting Genitourinary Genitourinary ED: Denies dysuria, hematuria or urinary frequency Musculoskeletal Musculoskeletal: Reports other Details: Right hand pain and swelling ; Denies arthralgias, back pain, myalgias or neck pain Integumentary Denies abscess, Abrasions or rash Neurologic Neurologic: Denies headache(s) or weakness Psychiatric Psychiatric: Denies anxiety, depression or suicidal thoughts Endocrine Endocrinology: Denies polydipsia, polyphagia or polyuria Hematologic/Lymphatic Hematologic/Lymphatic: Denies easy bleeding, easy bruising or lymphadenopathy Allergic/Immunologic Allergic/Immunologic ED: Denies mouth swelling, tongue swelling or urticaria EXAM Physical Exam Const Vital Signs: 01/17/22 13:25 Temperature 98 F Temperature Source Temporal Pulse Rate 82 Respiratory Rate 16 Blood Pressure 154/113 H Blood Pressure Mean 126 Pulse Ox 100 Oxygen Delivery Method Room Air Positive well nourished and well developed General Appearance ED: well developed and NAD HEENT Reports TM's clear and moist mucous membranes normocephalic and atraumatic; Negative for trauma or tenderness Tympanic Membrane ED: Yes TM's clear Eyes PERRL and EOMs intact bilaterally General Eye ED: Negative for pale conjunctiva or scleral icterus Neck no lymphadenopathy, supple and no JVD General: Negative for tenderness Chest Wall inspection of chest normal and palpation of chest normal Chest: Negative for tenderness Resp normal respiratory effort and clear to auscultation bilaterally Effort and Inspection: Negative for respiratory distress or pain with movement Auscultation: Negative for rhonchi, wheezes or diminished lung sounds Cardio regular rate, regular rhythm, S1 normal heart sound, S2 normal heart sound and no murmurs Peripheral Pulses: pulses 2+ throughout GI normal to inspection, nondistended, normoactive bowel sounds, soft to palpation, non-tender, non-distended and no masses Back/Spine no CVA tenderness and no thoracic nor lumbar tenderness Extremity Extremity Narrative: Right hand-patient does have some soft tissue swelling about the right ring finger with some ecchymosis and bruising at the base of the proximal phalanx extending onto the dorsum of the hand MCP joint of the fourth digit as well as MCP joint of the fifth digit. Patient has some mild diffuse tenderness over the ring finger. No obvious deformity. She is neurovascular intact. General Extremety ED: Negative for edema General Extremity: Negative for edema Neuro oriented x3, CN's II-XII intact bilaterally, no sensory deficits noted and gait normal Sensorium / Orientation: awake, alert, oriented to person, oriented to place and oriented to time Motor Exam: strength 5/5 throughout and strength abnormal Psych mental status grossly normal Skin no rashes or lesions noted and no wounds MDM MDM MDM Narrative Medical decision making narrative: CBC with differential obtained was normal. Platelet count was normal. At this point I suspect patient likely had a spontaneous hemorrhage of the ring finger causing the ecchymosis and bruising and soft tissue swelling. At this point I do not feel any further treatment is indicated other than supportive care with ice to the area and Tylenol for discomfort and she is advised to avoid ibuprofen at this time. Patient will follow-up with her primary care physician for wound check in 3 to 5 days. Radiography Diagnostic Testing: Three-view x-rays of patient's right hand obtained interpreted by myself as no acute fractures. Radiology in agreement. Radiology thought she had arthritic changes at the first MCP joint of the thumb. Discharge Plan Triage Chief Complaint: Upper Extremity Injury ED Provider: Vicki Eller Dx/Rx/DC Orders Clinical Impression: Hand pain, right Instructions: Bruises (Contusions), ED Pain, Acute, Uncertain Cause Prescriptions: No Action amlodipine [Norvasc] 5 mg tablet 5 mg PO DAILY meclizine 25 mg tablet 25 mg PO TID PRN atorvastatin 10 mg tablet 10 mg PO DAILY albuterol sulfate [Ventolin HFA] 90 mcg/actuation HFA aerosol inhaler 2 puff INHALATION Q4H PRN bupropion HCl 150 mg tablet sustained-release 12 hr 150 mg PO BID losartan 100 mg tablet 100 mg PO DAILY triamcinolone acetonide 0.025 % cream 1 applic TOPICAL .QID PRN omeprazole 20 mg capsule,delayed release(DR/EC) 20 mg PO QHS clonazepam 0.5 mg tablet 0.5 mg PO TID PRN (Reason: Anxiety) prednisone 5 mg tablet 5 mg PO DAILY Label Comments: arthritis,sjogren's cyclobenzaprine 10 mg tablet 10 mg PO QHS PRN Primary Care Provider: Dakotah Coe Referrals: Dakotah Coe MD [Primary Care Provider] - 3-5 Days Disposition Disposition: Home, Self Care
[2022-01-17 14:27] LABS: Absolute Lymphocyte Count 1.77 X10^3/uL (0.83-4.51); Absolute Neutrophil Count 6.3 X10^3/uL (2.0-7.7); Basophil# 0.04 X10^3/uL; Basophil% 0.5 % (0-1); Eosinophil# 0.05 X10^3/uL; Eosinophils% 0.6 % (0-5); Hematocrit 45.4 % (37-47); Hemoglobin 14.8 g/dL (12.0-15.0); Lymphocyte # 1.77 X10^3/ul (0.83-4.51); Lymphocyte % 20.6 % (19-41); Mean Corp Hgb Conc 32.6 g/dL (32-36); Mean Corpuscular Hgb 29.5 pg (27.0-32.0); Mean Corpuscular Volume 90.4 fL (81-99); Mean Platelet Vol. 9.1 fl (6.2-12.0); Monocyte# 0.46 X10^3/uL; Monocyte% 5.3 % (0-10); NRBC Flagged by Analyzer 0 % (0-5); Neutrophil # 6.25 X10^3/uL (2.7-7.7); Neutrophil % 72.5 % (47-70); Platelet Count 276 K/mm3 (150-450); RBC Distribution Width CV 13.8 % (11.6-14.6); RBC Distribution Width SD 45.6 fl (35.1-43.9); Red Blood Count 5.02 M/mm3 (4.2-5.4); White Blood Count 8.6 K/mm3 (4.4-11.0)
[2022-01-17 15:05] VITALS: BP 129/77; PULSE 62; RESP 15; O2SAT 98
== END 2022-01-17 15:06 | disposition home or self-care (01) ==
PROVIDERS: Emergency Provider Emergency Medicine; PCP Family Medicine; Visit Provider Emergency Medicine
DX: M79.641 Pain in right hand (principal); M79.89 Other specified soft tissue disorders; E78.5 Hyperlipidemia, unspecified; I10 Essential (primary) hypertension; M79.7 Fibromyalgia; F41.9 Anxiety disorder, unspecified; F32.A Depression, unspecified; E66.9 Obesity, unspecified; Z79.899 Other long term (current) drug therapy; Z87.442 Personal history of urinary calculi; R23.3 Spontaneous ecchymoses
CPT/HCPCS: 73130; 85025; 99282

== ENCOUNTER → 2022-03-06 | Outpatient (CLI) | payer MEDICARE, OTHER, SELFPAY ==
--- NOTE | 2022-03-06 12:49 | CT_ITS ---
STUDY: CT ABDOMEN AND PELVIS WITHOUT CONTRAST REASON FOR EXAM: Female, 61 years old. CALCULUS OF KIDNEY RADIATION DOSAGE (If Supplied By Facility): CTDIvol = ( 23.60 ) mGy, DLP = ( 1108.48 ) mGycm TECHNIQUE: Transaxial images were obtained from the dome of the diaphragm to the symphysis pubis without oral contrast, and without intravenous contrast. Sagittal and coronal images were reconstructed. Individualized dose optimization techniques were used for this CT. COMPARISON: None. FINDINGS: The visualized lung bases are unremarkable. The visualized portions of the heart are within normal limits. The lack of intravenous contrast limits evaluation of solid visceral organs. Normal liver. There is non-visualization of the gallbladder, which may be secondary to either contraction or a prior cholecystectomy. Normal spleen. Normal pancreas. Normal bilateral adrenal glands. There are bilateral faint calcifications within the cortical medullary region. There are nonobstructing right renal calculi measuring up to 8 mm. Normal visualized stomach. Normal small intestine. There are multiple colonic diverticula consistent with diverticulosis. The appendix is visualized and appears normal. Normal abdominal aorta. Normal inferior vena cava. Normal retroperitoneum. Normal urinary bladder. There is a small umbilical hernia containing fat. There are diffuse degenerative changes of the visualized lumbar spine. There is a grade 1 anterior spondylolisthesis of L4 on L5. CT/Abdomen/Pelvis without Cont IMPRESSION: Nonobstructing right renal calculi measuring up to 8 mm. Bilateral medullary nephrocalcinosis. Colonic diverticulosis. Degenerative changes of the lumbar spine. Grade 1 anterior spondylolisthesis of L4 on L5. Electronically Signed: Radha Mcdaniel MD at 13:18 EDT ,
== END | disposition home or self-care (01) ==
LOC: CT 12:48
PROVIDERS: PCP Family Medicine; Referring Provider Urology; Visit Provider Urology
DX: N20.0 Calculus of kidney (principal)
CPT/HCPCS: 74176

== ENCOUNTER → 2022-04-08 | Outpatient (CLI) | payer MEDICARE, OTHER, SELFPAY ==
--- NOTE | 2022-04-08 11:49 | EKG12_ITS ---
Test Reason : PRE OP Blood Pressure : / mmHG Vent. Rate : 085 BPM Atrial Rate : 085 BPM P-R Int : 148 ms QRS Dur : 082 ms QT Int : 346 ms P-R-T Axes : 053 -35 024 degrees QTc Int : 411 ms Normal sinus rhythm Left axis deviation Low voltage QRS Abnormal ECG Confirmed by HERIBERTO TRACY, BEA ([id number]), deputy editor in chief MARVEL SOLORIO ([id number]) on 04/09/2022 10:27:51 AM Referred By: Sammy Ramos Confirmed By:BEA LOUIS MD
[2022-04-08 12:44] LABS: Hematocrit 44.8 % (37-47); Hemoglobin 14.5 g/dL (12.0-15.0); Mean Corp Hgb Conc 32.4 g/dL (32-36); Mean Corpuscular Hgb 28.9 pg (27.0-32.0); Mean Corpuscular Volume 89.4 fL (81-99); Mean Platelet Vol. 9.5 fl (6.2-12.0); Platelet Count 333 K/mm3 (150-450); RBC Distribution Width CV 13.1 % (11.6-14.6); RBC Distribution Width SD 42.8 fl (35.1-43.9); Red Blood Count 5.01 M/mm3 (4.2-5.4); White Blood Count 8.3 K/mm3 (4.4-11.0)
[2022-04-08 13:03] LABS: Anion Gap 4 (5-15); BUN 20 mg/dL (7-18); BUN/Creat Ratio 23.3 RATIO (10-20); Calcium,Total 9.3 mg/dL (8.5-10.1); Chloride 108 mmol/L (98-107); Creatinine, Serum 0.86 mg/dL (0.55-1.02); EST Glomerular Filtration Rate 72 mL/min (>60); Est Glom Filt Rate - Afr Amer 87 mL/min (>60); Glucose 112 mg/dL (74-106); Potassium 4.3 mmol/L (3.5-5.1); Sodium Level 142 mmol/L (136-145)
== END | disposition home or self-care (01) ==
LOC: PSN 11:46
PROVIDERS: PCP Family Medicine; Referring Provider Urology; Visit Provider Urology
DX: Z01.810 Encounter for preprocedural cardiovascular examination (principal); Z01.812 Encounter for preprocedural laboratory examination; R94.31 Abnormal electrocardiogram [ECG] [EKG]
CPT/HCPCS: 36415; 80048; 85027; 93005

== ENCOUNTER → 2022-04-23 | Outpatient (CLI) | payer MEDICARE, OTHER, SELFPAY ==
[2022-04-23 16:27] LABS: Erythrocyte Sedimentation Rate 9 mm/hr (0-30)
[2022-04-23 16:49] LABS: CRP 6.45 mg/L (0.0-3.0); LDH 292 U/L (84-246)
[2022-04-27 15:08] LABS: Endomysial Antibody IgA Negative (Negative)
[2022-04-27 16:11] LABS: Immunoglobulin A 136 mg/dL (87-352); t-Transglutaminase IgA <2 U/mL (0-3)
[2022-05-02 04:07] LABS: Cytoplasmic Ab (C-ANCA) <1:20 titer (Neg:<1:20); Immunoglobulin A 141 mg/dL (87-352); Immunoglobulin E 5 IU/mL (6-495); Immunoglobulin G 547 mg/dL (586-1602); Immunoglobulin M 58 mg/dL (26-217)
[2022-05-02 07:38] LABS: Perinuclear Ab (P-ANCA) <1:20 titer (Neg:<1:20)
== END | disposition home or self-care (01) ==
PROVIDERS: PCP Family Medicine; Visit Provider Nurse Practitioner Adult Health
DX: K52.9 Noninfective gastroenteritis and colitis, unspecified (principal); K62.5 Hemorrhage of anus and rectum
CPT/HCPCS: 36415; 82784; 82785; 83516; 83615; 85652; 86140; 86255; 86256

== ENCOUNTER 2022-05-13 12:10 | Outpatient (CLI) | payer MEDICARE, OTHER, SELFPAY ==
[2022-05-13 12:31] LABS: Absolute Lymphocyte Count 2.54 X10^3/uL (0.83-4.51); Absolute Neutrophil Count 4.8 X10^3/uL (2.0-7.7); Basophil# 0.05 X10^3/uL; Basophil% 0.6 % (0-1); Eosinophil# 0.25 X10^3/uL; Hematocrit 43.7 % (37-47); Hemoglobin 14.3 g/dL (12.0-15.0); Lymphocyte # 2.54 X10^3/ul (0.83-4.51); Lymphocyte % 30.2 % (19-41); Mean Corp Hgb Conc 32.7 g/dL (32-36); Mean Corpuscular Hgb 29.5 pg (27.0-32.0); Mean Corpuscular Volume 90.1 fL (81-99); Mean Platelet Vol. 9.4 fl (6.2-12.0); Monocyte# 0.72 X10^3/uL; Monocyte% 8.6 % (0-10); NRBC Flagged by Analyzer 0 % (0-5); Neutrophil % 57.1 % (47-70); Platelet Count 299 K/mm3 (150-450); RBC Distribution Width SD 42.8 fl (35.1-43.9); Red Blood Count 4.85 M/mm3 (4.2-5.4); White Blood Count 8.4 K/mm3 (4.4-11.0)
[2022-05-13 13:12] LABS: BUN 19 mg/dL (7-18); Creatinine, Serum 0.81 mg/dL (0.55-1.02); Glucose 89 mg/dL (74-106)
[2022-05-13 13:13] LABS: ALB/GLOB Ratio 1.1 RATIO (0.9-2.4); AST(SGOT) 21 U/L (15-37); Alanine Aminotransfer ALT/SGPT 53 U/L (13-56); Albumin, Serum 3.4 g/dL (3.2-5.0); Alkaline Phosphatase 95 U/L (45-117); Anion Gap 4 (5-15); BUN/Creat Ratio 23.5 RATIO (10-20); CPK Total, Creatine Kinase 104 U/L (26-192); Chloride 107 mmol/L (98-107); EST Glomerular Filtration Rate 77 mL/min (>60); Est Glom Filt Rate - Afr Amer 93 mL/min (>60); Globulin 3.1 g/dL (2.2-4.2); LDH 248 U/L (84-246); Potassium 4.2 mmol/L (3.5-5.1); Protein, Total 6.5 g/dL (6.4-8.2); Sodium Level 141 mmol/L (136-145)
[2022-05-15 10:29] LABS: Calprotectin, Stool 130 ug/g (0-120)
[2022-05-20 09:08] LABS: LDH 253 IU/L (119-226); LDH Fraction 1 15 % (17-32); LDH Fraction 2 36 % (25-40); LDH Fraction 3 23 % (17-27); LDH Fraction 4 11 % (5-13); LDH Fraction 5 15 % (4-20)
== END 2022-05-13 23:59 | disposition home or self-care (01) ==
LOC: LAB 12:14
PROVIDERS: PCP Family Medicine; Referring Provider Nurse Practitioner Adult Health; Visit Provider Nurse Practitioner Adult Health
DX: D84.821 Immunodeficiency due to drugs (principal); T38.0X5A Adverse effect of glucocorticoids and synthetic analogues, initial encounter; Z79.52 Long term (current) use of systemic steroids; K58.9 Irritable bowel syndrome, unspecified
CPT/HCPCS: 36415; 80053; 82550; 83615; 83625; 83630; 83993; 85025; 87177; 87209; 87493; 87506

== ENCOUNTER 2022-06-25 05:16 | Day surgery (SDC) | payer MEDICARE, OTHER, SELFPAY ==
[2022-06-25] MEDS: Lactated Ringers 1,000 ML 15 ML IV (05:45)
[2022-06-25 06:17] VITALS: BP 123/81; PULSE 75; RESP 16; TEMP 36.7; O2SAT 95; BMI 42.3
--- NOTE | 2022-06-25 06:30 | IMM_PTH ---
PATIENT: PAOLO FERGUSON LOC: EN U#:[id number] AGE/SX: 61/F ROOM: RE06/25/[address]: Dr. Cheng Ram DO : 1960 BED: DIS: 06/25/2022 SPEC #: [id number] RECD: 06/25/22 14:15 STATUS: SHARRI REQ #: [id number] DAPHNE: 06/25/22 06:[address]: Cheng Ram DEPT: IMMUNOHISTOCHEMISTRY RECD BY: Kassidy Mendoza ENTERED: 06/25/22 14:15 SP TYPE: IMMUNO OTHR DR: Dr. Dakotah Coe MD Tissues: B - Stomach, NOS Procedures: H Pylori (initial) PHYSICIAN & INSTITUTION [place] [id number] SPECIMEN INFORMATION: Tissue Source: B ? Gastric body biopsy Clinical Info: Screening Specimen Number: [id number] CPT code: 49739 METHODOLOGY: Deparaffinized sections of prefer/formalin-fixed tissue or PAP/DQ stained slides are incubated with monoclonal/polyclonal antibodies/oligonucleotide probes. Localization is made via biotin free immunoperoxidase method. Appropriate controls are performed and reacted as expected. Results on target cell population are indicated in the following table: RESULTS: ANTIBODY / CLONE RESULT Block B H Pylori (polyclonal) negative These tests were developed and their performance characteristics determined by [facility]. They may not have been cleared or approved by the U.S. Food and Drug Administration. The FDA has determined that such clearance or approval is not necessary. The above immunohistochemical/dualISH markers are ordered and reviewed by the Pathologist. INTERPRETATION: B. Gastric body, biopsy: Negative for Helicobacter pylori organisms. SJ:helder 06/26/2022
--- NOTE | 2022-06-25 06:30 | EGD_PTH ---
PATIENT: PAOLO FERGUSON LOC: EN U#:[id number] AGE/SX: 61/F ROOM: RE06/25/[address]: Dr. Cheng Ram DO : 1960 BED: DIS: 06/25/2022 SPEC #: [id number] RECD: 06/25/22 13:22 STATUS: SHARRI JACK #: [id number] DAPHNE: 06/25/22 06:[address]: Cheng Ram DEPT: SURGICAL PATHOLOGY RECD BY: Pennie Farfan ENTERED: 06/25/22 13:40 SP TYPE: EGD BIOPSY OT DR: Dr. Dakotah Coe MD Tissues: A - Duodenum, NOS B - Gastric mucous membrane C - Esophagus, NOS D - COLON BIOPSY Procedures: Special Stain Group II Surgery Specimen Level IV Alcian Blue/PAS (control) HEADER OPERATION: Colonoscopy, EGD (MAC), biopsy PRE-OP DIAGNOSIS: Screening TISSUE SUBMITTED: A ? Duodenum biopsy, B ? Gastric body biopsy, C ? Distal esophagus biopsy, D ? Random colonic biopsy MICROSCOPIC DIAGNOSIS A. Duodenum, biopsy: Fragments of duodenal mucosa, no pathologic diagnosis. B. Gastric body, biopsy: Mild gastritis. See microscopic description and comment. C. Distal esophagus, biopsy: Fragments of gastroesophageal mucosa with chronic inflammation. Intestinal metaplasia (goblet cell metaplasia) not identified. See comment. D. Colon, random biopsy: Fragments of colonic mucosa, no pathologic diagnosis. SJ:helder 06/26/2022 COMMENT B. The results of immunohistochemistry for Helicobacter pylori will be reported separately ([id number]). C. Alcian blue/PAS stain with matched control is used in the evaluation of the specimen. MICROSCOPIC DESCRIPTION Slides are reviewed. B. The specimen shows fragments of gastric mucosa with chronic inflammatory cell infiltrates in the lamina propria consisting of lymphocytes and plasma cells, consistent with mild chronic gastritis. GROSS DESCRIPTION A - Received in fixative is one container labeled with the patient's name and designated duodenum biopsy. The specimen consists of two irregular fragments of light chamorro soft tissue that in aggregate measure 0.6 x 0.3 x 0.1 cm. The specimen is totally submitted in one cassette. B - Received in fixative is one container labeled with the patient's name and designated gastric body biopsy. The specimen consists of multiple irregular fragments of light chamorro soft tissue that in aggregate measure 0.9 x 0.9 x 0.1 cm. The specimen is totally submitted in one cassette. C - Received in fixative is one container labeled with the patient's name and designated distal esophagus biopsy. The specimen consists of multiple irregular fragments of light chamorro soft tissue that in aggregate measure 1 x 0.3 x 0.1 cm. The specimen is totally submitted in one cassette. D - Received in fixative is one container labeled with the patient's name and designated random colonic biopsy. The specimen consists of multiple irregular fragments of light chamorro soft tissue that in aggregate measure 2 x 0.5 x 0.1 cm. The specimen is totally submitted in one cassette. / SJ:rg 06/25/2022 TC:3 CPT: 91085 x4, 82254
--- NOTE | 2022-06-25 06:34 | HP.PCM_ITS ---
History and Physical Date of Admission: 06/25/22 61 F who presents to the office today for new consult for urgent diarrhea 15-30 min after eating. Occurs after every meal. Happens at home, but even moreso when out to eat. She hasn't been able to determine if certain foods are problematic. Began years ago but worse for past 6-12 mos. Gets bad abd cramping before the diarrhea. Has had a couple of diarrheal episodes with blood clots in the toilet since August 2021. She feels weak and exhausted after those episodes. While waiting to get in to see us she saw resident manager Dr Abraham, but wants to transfer care here. Has hyoscyamine and colestipol. Taking colestipol once a day, but has constipation now. Hyoscyamine some help with pain. He had her stop coffee, used to have 3-4 cups of coffee per day. On acid retail customer service representative since 2000. She takes omeprazole 20 mg at HS, sometimes takes a second dose in the night. Sleeps with HOB elevated. Random difficulty swallowing, feels like a spasm in the esophagus, food or liquid gets stuck temporarily until spasm passes. Intermittent nausea, can wake up with it in the morning, better with tea and crackers. No vomiting. Gets full quicker than she used to. Before Covid she did [facility] program here at the hospital, and went to gym at [facility]. Frustrated that she has now gained the weight back. Arthritis has flared up recently. Pain mgmt is trying to get Lyrica for her. She has DDD in neck and back. Has OA. She sees a malt house operator for Sjogren's, osteoporosis, trying to get her off prednisone which she has been on for approx 10 yrs. Prednisone mainly for Sjogren's. 04/05/19 egd and colonoscopy--bilious gastric fluid, multiple small mouthed diverticula She reports previous tubular adenoma. Hx cholecystectomy, hysterectomy, recent lithotripsy for renal stone CT abd pel w/o contrast ordered by urologist 03/06/22--diverticulosis 09/04/21 TSH 1.39 09/17/21 Hgb a1c 5.5 ROS Const Constitutional: Positive for fatigue and weight change ENT ENT: No difficulty swallowing Gastro GI: No abdominal pain, belching, bloating, change in bowel habits, change in stool character, coffee ground emesis, constipation, cramping, diarrhea, heartburn, difficulty swallowing, feeling full early, excessive flatus, incontinent of stools, Vomiting blood/hematemesis, Blood in stool, loose stools, Black,tarry stools, nausea/dyspepsia, pain with swallowing, vomiting or other Musc Musculoskeletal: No joint pain Skin Skin: No yellowing of the eye or itchy eyes Psych Psychiatric: No anxiety and No depression Endo Endocrine: Positive for fatigue and weight change Aller/Imm Allergy/Immunologic: No itchy eyes Clarence/Lymp Hematologic/Lymphatic: No easy bleeding or easy bruising Exam Const General: cooperative and no acute distress Nutritional Appearance: obese Orientation: alert, awake and oriented x3 HENMT Head: normal to inspection Eyes General: appearance normal, both eyes and all related structures Resp Effort & Inspection: normal respiratory effort GI Palpation: soft, no hepatosplenomegaly, no masses and tender in the epigastrum, in the RLQ, in the LUQ and in the RUQ Skin General: no rashes or lesions noted Neuro Gait: normal gait Quality Reporting Tobacco Screening ([facility] 138) Smoking Status: Never smoker Assessment and Plan Assessment and Plan (1) Chronic diarrhea: ?Status:?Chronic ?Plan: 61 yr old female with chronic diarrhea, abdominal cramping pain, episodes of rectal bleeding, refractory GERD, esophageal spasms. DDx includes bile acid gastritis/diarrhea, IBD, infection, microscopic colitis, SCAD, malignancy. For dysphagia/spasms, we discussed possible esophageal manometry (she prefers to wait on that), esophagram. May be due to Sjogen's. Consider gastric emptying study to eval for gastroparesis as cause of refractory acid reflux, bile acid in stomach Recent CT w/o contrast, we may need to get a CT w/ oral and IV contrast Labs: blood and stool tests to evaluate inflammation, infection, autoimmune EGD and colonoscopy w/ office f/u afterwards Dicyclomine 10 mg bid, stop hyoscyamine, stop colestipol since it's causing constipation (2) Rectal bleed: ?Status:?Acute ?Plan: as above (3) Dysphagia: ?Status:?Acute ? ? ? Orders: Orders CRP Today K52.9 - Noninfective gastroenteritis and colitis, unspecified ? LDH Today K52.9 - Noninfective gastroenteritis and colitis, unspecified ? Erythrocyte Sed Rate Today K52.9 - Noninfective gastroenteritis and colitis, unspecified ? Calprotectin, Stool Today K52.9 - Noninfective gastroenteritis and colitis, unspecified ? Ova and Parasites 8623 Today K52.9 - Noninfective gastroenteritis and colitis, unspecified, K58.9 - Irritable bowel syndrome without diarrhea ? CDIFF (PCR) Today K52.9 - Noninfective gastroenteritis and colitis, unspecified ? ENTERIC PATHOGEN PANEL STOOL Today D84.821 - Immunodeficiency due to drugs, K52.9 - Noninfective gastroenteritis and colitis, unspecified, K58.9 - Irritable bowel syndrome without diarrhea, T38.0X5A - Adverse effect of glucocorticoids and synthetic analogues, initial encounter, Z79.52 - watermaster (current) use of systemic steroids ? Stool Lactoferrin/WBC Today K52.9 - Noninfective gastroenteritis and colitis, unspecified ? ANCA Today K52.9 - Noninfective gastroenteritis and colitis, unspecified ? Celiac Disease Profile Today K52.9 - Noninfective gastroenteritis and colitis, unspecified ? Immunoglobulins G/A/M/E Today K52.9 - Noninfective gastroenteritis and colitis, unspecified ? Miscellaneous Lab Procedure Today K52.9 - Noninfective gastroenteritis and colitis, unspecified, K62.5 - Hemorrhage of anus and rectum ? I have examined the patient and the H&P has been reviewed. There are no clinical changes since date of exam.
[2022-06-25 07:10] VITALS: BP 109/70; BP 123/81; PULSE 76; RESP 16; TEMP 36.9; O2SAT 96
--- NOTE | 2022-06-25 07:11 | OP.EGD_ITS ---
Patient Name: Catrina Dowell Procedure Date: 06/25/2022 6:15 AM Date of : 1960 Age: 61 Procedure: Upper GI endoscopy Indications: Epigastric abdominal pain, Functional Dyspepsia Providers: Cheng Ram DO Medicines: Monitored Anesthesia Care Patient Profile: This is a 61 year old female. Refer to note in patient chart for documentation of history and physical. Patient has symptoms of chronic abdominal cramping and chronic epigastric abdominal pain. Complications: No immediate complications. Procedure: Pre-Anesthesia Assessment: - Prior to the procedure, a History and Physical was performed, and patient medications and allergies were reviewed. The risks and benefits of the procedure and the sedation options and risks were discussed with the patient. All questions were answered and informed consent was obtained. Patient identification and proposed procedure were verified by the physician in the pre-procedure area. Mental Status Examination: alert and oriented. Airway Examination: normal oropharyngeal airway and neck mobility. Respiratory Examination: clear to auscultation. CV Examination: normal. Prophylactic Antibiotics: The patient does not require prophylactic antibiotics. Prior Anticoagulants: The patient has taken no previous anticoagulant or antiplatelet agents. ASA Grade Assessment: II - A patient with mild systemic disease. After reviewing the risks and benefits, the patient was deemed in satisfactory condition to undergo the procedure. The anesthesia plan was to use deep sedation / analgesia. Immediately prior to administration of medications, the patient was re-assessed for adequacy to receive sedatives. The heart rate, respiratory rate, oxygen saturations, blood pressure, adequacy of pulmonary ventilation, and response to care were monitored throughout the procedure. The physical status of the patient was re-assessed after the procedure. After obtaining informed consent, the endoscope was passed under direct vision. Throughout the procedure, the patient's blood pressure, pulse, and oxygen saturations were monitored continuously. The Colonoscope was introduced through the mouth, and advanced to the second part of duodenum. The upper GI endoscopy was accomplished without difficulty. The patient tolerated the procedure well. Scope In: 6:39:03 AM Scope Out: 6:43:31 AM Total Procedure Duration Time 0 hours 4 minutes 28 seconds Findings: The Z-line was irregular and was found 39 cm from the incisors. Biopsies were taken with a cold forceps for histology. Verification of patient identification for the specimen was done. Estimated blood loss was minimal. A medium-sized hiatal hernia was present. Patchy moderate inflammation characterized by congestion (edema), erosions and erythema was found in the gastric body. Biopsies were taken with a cold forceps for histology. Verification of patient identification for the specimen was done. Estimated blood loss was minimal. No gross lesions were noted in the second portion of the duodenum. Biopsies were taken with a cold forceps for histology. Verification of patient identification for the specimen was done. Estimated blood loss was minimal. Impression: - Z-line irregular, 39 cm from the incisors. Biopsied. - Medium-sized hiatal hernia. - Gastritis. Biopsied. - No gross lesions in the second portion of the duodenum. Biopsied. Recommendation: - Discharge patient to home. - Resume previous diet. - Continue present medications. - Await pathology results. Procedure Code(s): --- Professional --- 76658, Esophagogastroduodenoscopy, flexible, transoral; with biopsy, single or multiple CPT copyright 2017 [employer]. All rights reserved. The codes documented in this report are preliminary and upon proced tech review may be revised to meet current compliance requirements. Cheng Ram DO 06/25/2022 7:10:19 AM This report has been signed electronically. Number of Addenda: 0 Note Initiated On: 06/25/2022 6:15 AM
--- NOTE | 2022-06-25 07:11 | OP.CCLET_ITS ---
06/25/2022 Dakotah Coe Re : Upper GI endoscopy procedure for Catrina Coe This procedure was performed on June. My impressions and recommendations are as follows: Impressions : - Z-line irregular, 39 cm from the incisors. Biopsied. - Medium-sized hiatal hernia. - Gastritis. Biopsied. - No gross lesions in the second portion of the duodenum. Biopsied. Recommendations : - Discharge patient to home. - Resume previous diet. - Continue present medications. - Await pathology results. My findings are described in the full procedure note, which is enclosed. If I can be of further assistance, please feel free to contact me at . Sincerely, Cheng Ram, 06/25/2022 7:10:19 AM This report has been signed electronically.
--- NOTE | 2022-06-25 07:14 | OP.CCLET_ITS ---
06/25/2022 Dakotah Coe Re : Colonoscopy procedure for Catrina Coe This procedure was performed on June. My impressions and recommendations are as follows: Impressions : - Decreased sphincter tone found on digital rectal exam. - Diverticulosis in the recto-sigmoid colon, in the sigmoid colon, in the descending colon, at the splenic flexure and in the transverse colon. - Significant colonic spasm consistent with irritable bowel syndrome. - Congested mucosa in the sigmoid colon, in the descending colon and in the ascending colon. Biopsied. Recommendations : - Discharge patient to home. - Resume previous diet. - Continue present medications. - Await pathology results. - Repeat colonoscopy in 10 years for screening purposes. My findings are described in the full procedure note, which is enclosed. If I can be of further assistance, please feel free to contact me at . Sincerely, Cheng Ram, 06/25/2022 7:13:50 AM This report has been signed electronically.
--- NOTE | 2022-06-25 07:14 | OP.COLON_ITS ---
Patient Name: Catrina Dowell Procedure Date: 06/25/2022 6:43 AM Date of : 1960 Age: 61 Procedure: Colonoscopy Indications: Screening for colorectal malignant neoplasm Providers: Cheng Ram DO Medicines: Monitored Anesthesia Care Patient Profile: This is a 61 year old female. Refer to note in patient chart for documentation of history and physical. Patient has symptoms of chronic abdominal cramping and chronic epigastric abdominal pain. Last Colonoscopy: several years ago. Complications: No immediate complications. Procedure: Pre-Anesthesia Assessment: - Prior to the procedure, a History and Physical was performed, and patient medications and allergies were reviewed. The risks and benefits of the procedure and the sedation options and risks were discussed with the patient. All questions were answered and informed consent was obtained. Patient identification and proposed procedure were verified by the physician in the pre-procedure area. Mental Status Examination: alert and oriented. Airway Examination: normal oropharyngeal airway and neck mobility. Respiratory Examination: clear to auscultation. CV Examination: normal. Prophylactic Antibiotics: The patient does not require prophylactic antibiotics. Prior Anticoagulants: The patient has taken no previous anticoagulant or antiplatelet agents. ASA Grade Assessment: II - A patient with mild systemic disease. After reviewing the risks and benefits, the patient was deemed in satisfactory condition to undergo the procedure. The anesthesia plan was to use deep sedation / analgesia. Immediately prior to administration of medications, the patient was re-assessed for adequacy to receive sedatives. The heart rate, respiratory rate, oxygen saturations, blood pressure, adequacy of pulmonary ventilation, and response to care were monitored throughout the procedure. The physical status of the patient was re-assessed after the procedure. After I obtained informed consent, the scope was passed under direct vision. Throughout the procedure, the patient's blood pressure, pulse, and oxygen saturations were monitored continuously. The Colonoscope was introduced through the anus and advanced to the terminal ileum. The colonoscopy was performed without difficulty. The patient tolerated the procedure well. The quality of the bowel preparation was good. Scope In: 6:46:21 AM Scope Withdrawal Time 0 hours 12 minutes 18 seconds Scope Out: 7:03:47 AM Total Procedure Duration Time 0 hours 17 minutes 26 seconds Findings: The digital rectal exam findings include decreased sphincter tone. Multiple small and large-mouthed diverticula were found in the recto-sigmoid colon, sigmoid colon, descending colon, splenic flexure and transverse colon. There was significant spasm in the sigmoid colon. An area of mildly congested mucosa was found in the sigmoid colon, in the descending colon and in the ascending colon. Biopsies were taken with a cold forceps for histology. Verification of patient identification for the specimen was done. Estimated blood loss was minimal. Impression: - Decreased sphincter tone found on digital rectal exam. - Diverticulosis in the recto-sigmoid colon, in the sigmoid colon, in the descending colon, at the splenic flexure and in the transverse colon. - Significant colonic spasm consistent with irritable bowel syndrome. - Congested mucosa in the sigmoid colon, in the descending colon and in the ascending colon. Biopsied. Recommendation: - Discharge patient to home. - Resume previous diet. - Continue present medications. - Await pathology results. - Repeat colonoscopy in 10 years for screening purposes. Procedure Code(s): --- Professional --- 91703, Colonoscopy, flexible; with biopsy, single or multiple CPT copyright 2017 [employer]. All rights reserved. The codes documented in this report are preliminary and upon outpatient coder review may be revised to meet current compliance requirements. Cheng Ram DO 06/25/2022 7:13:50 AM This report has been signed electronically. Number of Addenda: 0 Note Initiated On: 06/25/2022 6:43 AM
[2022-06-25 07:15] VITALS: BP 108/76; BP 123/81; PULSE 76; RESP 16; O2SAT 94
[2022-06-25 07:20] VITALS: BP 106/73; BP 123/81; PULSE 73; RESP 16; O2SAT 94
[2022-06-25 07:25] VITALS: BP 116/73; BP 123/81; PULSE 70; RESP 16; TEMP 36.6; O2SAT 96
[2022-06-25 07:45] VITALS: BP 123/81
== END 2022-06-25 08:02 | disposition home or self-care (01) ==
LOC: EN 05:19 → AC 05:19
PROVIDERS: PCP Family Medicine; Referring Provider Family Medicine; Visit Provider Internal Medicine Gastroenterology
PROC: 0DJD8ZZ Inspection of Lower Intestinal Tract, Via Natural or Artificial Opening Endoscopic (ICD-10-PCS; CPT 45378; principal; 2022-06-25 06:25)
DX: Z12.11 Encounter for screening for malignant neoplasm of colon (principal); D84.821 Immunodeficiency due to drugs; M35.00 Sjogren syndrome, unspecified; K29.70 Gastritis, unspecified, without bleeding; K44.9 Diaphragmatic hernia without obstruction or gangrene; K63.89 Other specified diseases of intestine; R13.10 Dysphagia, unspecified; K57.30 Diverticulosis of large intestine without perforation or abscess without bleeding; Z86.16 Personal history of COVID-19; M81.0 Age-related osteoporosis without current pathological fracture; K52.9 Noninfective gastroenteritis and colitis, unspecified; Z79.52 Long term (current) use of systemic steroids
CPT/HCPCS: 43239; 45380; 88305; 88313; 88342; J7120; J2405

== ENCOUNTER 2022-08-08 20:14 | Emergency (ER) | payer MEDICARE, OTHER, SELFPAY ==
[2022-08-08 20:14] VITALS: BP 149/90; PULSE 106; RESP 15; TEMP 37.2; O2SAT 98; BMI 42.6
--- NOTE | 2022-08-08 20:28 | EKG12_ITS ---
Test Reason : CP Blood Pressure : / mmHG Vent. Rate : 095 BPM Atrial Rate : 095 BPM P-R Int : 140 ms QRS Dur : 082 ms QT Int : 360 ms P-R-T Axes : 049 -36 028 degrees QTc Int : 452 ms Normal sinus rhythm Left axis deviation Cannot rule out Anterior infarct , age undetermined Abnormal ECG Confirmed by HERIBERTO TRACY, BEA ([id number]), editor sound MARVEL SOLORIO ([id number]) on 08/11/2022 9:24:42 AM Referred By: BHANU Confirmed By:BEA LOUIS MD
--- NOTE | 2022-08-08 20:29 | CT_ITS ---
STUDY: CTA CHEST REASON FOR EXAM: Female, 62 years old. Chest pain, radiation to back RADIATION DOSAGE (If Supplied By Facility): CTDIvol = ( 24.46 ) mGy, DLP = ( 712.42 ) mGycm TECHNIQUE: The examination was performed with the intravenous administration of 100mL Isovue-370. Post-processing of the angiographic images was performed, with multiplanar reformation and 3D reconstruction. Individualized dose optimization techniques were used for this CT. COMPARISON: None. FINDINGS: Normal enhancement of the main pulmonary artery and right and left pulmonary arteries. Normal enhancement of the bilateral peripheral pulmonary arteries. There is no demonstrated pulmonary embolism. Normal thoracic aorta and visualized great vessels. There is no demonstrated aortic dissection. Normal heart and pericardium. Normal mediastinum. Normal hilar regions. Normal visualized trachea and bronchi. Normal pulmonary parenchyma. No pleural effusions. Normal chest wall structures. No acute or aggressive osseous abnormality. No acute findings in the upper abdomen. CT/CTA Chest W/WO Contrast IMPRESSION: Normal CTA chest examination, without a demonstrated pulmonary embolism or arterial dissection. No acute pulmonary findings. Electronically Signed: Bob Oconnell MD at 21:56 EST ,
--- NOTE | 2022-08-08 20:30 | EDS_ITS ---
HPI History of Present Illness Chief Complaint: Chest Pain Narrative Narrative: 62-year-old female past medical history of hiatal hernia, GERD, hypertension, hyperlipidemia presents with left-sided chest pain that she has had since 1230 this afternoon. She was getting out of the shower and states that she had left- sided chest pain that somewhat sharp and stabbing radiating to her left scapula and to her left arm. She denies any nausea or vomiting but states over the last few hours, after dinner she became sweaty. She denies any shortness of breath. No recent fever or chills, no cough, but does state that she was treated with 2 rounds of antibiotics for pneumonia within the last month or 2. She denies any leg swelling. No exacerbating or alleviating factors per se, but sometimes when she does get up and move around, it causes her more pain. [facility] Medical History Abdominal pain Anxiety and depression Back pain Cardiology follow-up encounter Cholelithiases Colon polyp Diarrhea Difficulty swallowing Diverticulitis, colon Dizziness Easy bruising Essential hypertension Fatigue Fibromyalgia GERD (gastroesophageal reflux disease) History of echocardiogram History of edema History of pain when walking History of stress test Hyperlipidemia Hypertension IBS (irritable bowel syndrome) Leg cramps Medullary cystic kidney Migraine headache Monoarticular arthritis Non-smoker Obesity Palpitations Pancreatic lesion Shortness of breath on exertion Sjogrens syndrome Home Medications amlodipine 5 mg tablet (Norvasc) 5 mg PO DAILY 03/28/19 [History Last Taken 04/05/19 06:45 5 MG] albuterol sulfate 90 mcg/actuation aerosol inhaler (Ventolin HFA) 2 puff inhalation Q4H PRN SOB 07/05/19 [History Last Taken Unknown] clonazepam 0.5 mg tablet 0.5 mg PO TID PRN Anxiety 07/05/19 [History Last Taken Unknown] meclizine 25 mg tablet 25 mg PO TID PRN Vertigo 07/05/19 [History Last Taken Unknown] losartan 100 mg tablet 100 mg PO DAILY 07/11/19 [History Last Taken Unknown] cyclobenzaprine 10 mg tablet 10 mg PO QHS PRN Spasms 02/14/20 [History Last Taken Unknown] omeprazole 20 mg capsule,delayed release 20 mg PO QHS 02/14/20 [History Last Taken Unknown] triamcinolone acetonide 0.025 % topical cream 1 applic topical .QID PRN Rash 02/14/20 [History Last Taken Unknown] pregabalin 25 mg capsule (Lyrica) 25 mg PO TID 06/23/22 [History Last Taken Unknown] dicyclomine 20 mg tablet 20 mg PO BID #60 tabs 07/06/22 [Rx Last Taken Unknown] cholestyramine (with sugar) 4 gram oral powder 4 g PO DAILY #348.6 grams 07/16/22 [Rx Last Taken Unknown] Allergy/AdvReac Type Severity Reaction Status Date / Time morphine AdvReac Vomiting Verified 08/08/22 20:19 Family History Grandmother Breast cancer Diabetes Father Cancer Hypertension CAD (coronary artery disease) Grandfather CVA (cerebral vascular accident) Mother Arthritis Surgical History History of esophagogastroduodenoscopy (EGD) History of tonsillectomy Hx of cystoscopy S/P foot surgery, right S/P hysterectomy S/P laparoscopic cholecystectomy Social History Smoking Status: Never smoker alcohol intake: current alcohol intake frequency: holidays/special occasions only ROS ROS ED ROS Narrative Constitutional: No fever, no chills. Sweaty over the last few hours. HEENT: No sore throat. No neck pain. No loss of vision. No rhinorrhea. Cardiovascular: Left-sided chest pain with radiation to scapula and to left arm. No palpitations. No pedal edema. Respiratory: No cough, no shortness of breath. Abdominal: No abdominal pain. No nausea. No vomiting. Genitourinary: No dysuria. No hematuria. Musculoskeletal: No myalgias. No arthralgias. Neurologic: No headaches. No dizziness. No lightheadedness. Skin: No rash. No change in color. Psychiatric: No depression. No anxiety. EXAM Physical Exam Narrative Exam Narrative: Afebrile. Vital signs noted. HEENT: Normocephalic. Atraumatic. PERRL, EOMI. Neck soft and supple. No point tenderness or step off. Cardiovascular: Regular rate and rhythm. No murmurs, rubs, or gallops appreciated. Respiratory: No tachypnea. Lungs clear to auscultation bilaterally. Gastrointestinal: Abdomen soft, nontender, with normoactive bowel sounds. No rebound or guarding. Neurological: Awake. Alert. Nonfocal, nonlateralizing. Skin: No rash. Normal color. No pallor. Musculoskeletal: No pedal edema. Full range of motion extremities. Const Vital Signs: 08/08/22 20:14 08/08/22 20:41 08/08/22 20:41 Temperature 98.9 F Temperature Source Temporal Pulse Rate 106 H Respiratory Rate 15 Respiratory Effort Normal Blood Pressure 149/90 H Blood Pressure Mean 109 Pulse Ox 98 Oxygen Delivery Method Room Air Room Air Heart Score History: Slightly/Non-Suspicious ECG: Nonspecific Repolarization Age: >45 - <65 years Risk Factors: 1 or 2 Risk Factors Score: 3 MDM MDM MDM Narrative Medical decision making narrative: In the differential diagnosis is acute coronary syndrome/STEMI/non-STEMI versus pulmonary embolism versus aortic dissection with her radiation of pain to her left scapula. She could also have mechanical/musculoskeletal chest and back pain. Comprehensive work-up was pursued. She was not administered aspirin because she has history of gastrointestinal hemorrhage. CTA of the chest will be obtained to rule out dissection and pulmonary embolism. EKG was obtained and interpreted by myself which demonstrates normal sinus rhythm at 95 bpm without ectopy or acute ST changes. No STEMI. Instead of a chest x-ray, I do feel that the CTA would be more beneficial. I will check her laboratory work including CBC, BMP, and troponin. I reviewed her laboratory work. CBC shows normal white count of 10.3, hemoglobin 15.3 with hematocrit 49.1, platelet count 320. Review of her electrolyte panel shows normal sodium of 142, potassium normal at 3.6, glucose appropriately elevated at 125, BUN elevated at 19 with a creatinine of 0.91. Normal anion gap of 9. High-sensitivity troponin is less than 3. This is greater than a 3-hour troponin, and greater than a 6-hour troponin. I do not feel that a second needs to be repeated then because she is at low risk for acute coronary syndrome, and I feel she has been ruled out by biomarkers. CTA of the chest is pending to rule out pulmonary embolism or dissection. CTA has returned and I reviewed the radiology report, and there is no evidence of acute dissection or pulmonary embolism. No pneumonia or pneumothorax. At this point in time, given her negative work-up here, I feel she can be discharged home with follow-up to her primary care provider. I am unsure as to the cause of her chest pain and scapular pain, but I do feel that once again she can be discharged. Return instructions to the emergency department were reviewed. Disposition is discharged home in stable condition. Lab Data Attestation: I reviewed the patient's lab results. Labs: Laboratory Results - last 24 hr 08/08/22 08/08/22 20:33 20:33 WBC 10.3 RBC 5.48 H Hgb 15.3 H Hct 49.1 H MCV 89.6 MCH 27.9 MCHC 31.2 L RDW Std Deviation 45.5 H RDW Coeff of Rajni 13.9 Plt Count 320 MPV 9.5 Immature Gran % (Auto) 0.500 Neut % (Auto) 56.5 Lymph % (Auto) 32.8 [place] % (Auto) 7.8 Eos % (Auto) 1.8 Baso % (Auto) 0.6 Absolute Neuts (auto) 5.8 Absolute Lymphs (auto) 3.38 Nucleated RBC % 0 Sodium 142 Potassium 3.6 Chloride 106 Carbon Dioxide 27.0 Anion Gap 9 BUN 19 H Creatinine 0.91 Estim Creat Clear Calc 52.00 Est GFR (MDRD) Af Amer 81 Est GFR (MDRD) Non-Af 67 BUN/Creatinine Ratio 20.9 H Glucose 125 H Calcium 9.3 Troponin I High Sens < 3 L Radiography Diagnostic Testing: Clinical Impression(s) from Imaging Studies Chest CTA 08/08/22 20:29 IMPRESSION: Normal CTA chest examination, without a demonstrated pulmonary embolism or arterial dissection. No acute pulmonary findings. Electronically Signed: Bob Oconnell MD at 21:56 EST , Discharge Plan Triage Chief Complaint: Chest Pain ED Provider: Navdeep Sterling Dx/Rx/DC Orders Clinical Impression: Chest pain, Pain of left scapula Prescriptions: No Action amlodipine [Norvasc] 5 mg tablet 5 mg PO DAILY meclizine 25 mg tablet 25 mg PO TID PRN (Reason: Vertigo) albuterol sulfate [Ventolin HFA] 90 mcg/actuation HFA aerosol inhaler 2 puff INHALATION Q4H PRN (Reason: SOB) losartan 100 mg tablet 100 mg PO DAILY triamcinolone acetonide 0.025 % cream 1 applic TOPICAL .QID PRN (Reason: Rash) omeprazole 20 mg capsule,delayed release(DR/EC) 20 mg PO QHS cholestyramine (with sugar) 4 gram powder 4 g PO DAILY Qty: 348.6 2RF Rx Instructions: administer w/meal; avoid other meds within 1hr before or 4-6hr after dose clonazepam 0.5 mg tablet 0.5 mg PO TID PRN (Reason: Anxiety) cyclobenzaprine 10 mg tablet 10 mg PO QHS PRN (Reason: Spasms) pregabalin [Lyrica] 25 mg Capsule 25 mg PO TID dicyclomine 20 mg tablet 20 mg PO BID Qty: 60 2RF Primary Care Provider: Daktoah Coe Referrals: Dakotah Coe MD [Primary Care Provider] - 3-5 Days if not improving Disposition Disposition: Home, Self Care
[2022-08-08 20:40] LABS: Absolute Lymphocyte Count 3.38 X10^3/uL (0.83-4.51); Absolute Neutrophil Count 5.8 X10^3/uL (2.0-7.7); Basophil# 0.06 X10^3/uL; Basophil% 0.6 % (0-1); Eosinophil# 0.19 X10^3/uL; Eosinophils% 1.8 % (0-5); Hematocrit 49.1 % (37-47); Hemoglobin 15.3 g/dL (12.0-15.0); Lymphocyte # 3.38 X10^3/ul (0.83-4.51); Lymphocyte % 32.8 % (19-41); Mean Corp Hgb Conc 31.2 g/dL (32-36); Mean Corpuscular Hgb 27.9 pg (27.0-32.0); Mean Corpuscular Volume 89.6 fL (81-99); Mean Platelet Vol. 9.5 fl (6.2-12.0); Monocyte% 7.8 % (0-10); NRBC Flagged by Analyzer 0 % (0-5); Neutrophil # 5.81 X10^3/uL (2.7-7.7); Neutrophil % 56.5 % (47-70); Platelet Count 320 K/mm3 (150-450); RBC Distribution Width CV 13.9 % (11.6-14.6); RBC Distribution Width SD 45.5 fl (35.1-43.9); Red Blood Count 5.48 M/mm3 (4.2-5.4); White Blood Count 10.3 K/mm3 (4.4-11.0)
[2022-08-08 20:42] LABS: POSITIVE COUNT NO; POSITIVE DIFFERENTIAL NO; POSITIVE MORPHOLOGY NO
[2022-08-08 20:59] LABS: Anion Gap 9 (5-15); BUN 19 mg/dL (7-18); BUN/Creat Ratio 20.9 RATIO (10-20); Calcium,Total 9.3 mg/dL (8.5-10.1); Chloride 106 mmol/L (98-107); Creatinine, Serum 0.91 mg/dL (0.55-1.02); EST Glomerular Filtration Rate 67 mL/min (>60); Est Glom Filt Rate - Afr Amer 81 mL/min (>60); Glucose 125 mg/dL (74-106); Potassium 3.6 mmol/L (3.5-5.1); Sodium Level 142 mmol/L (136-145); Troponin-I HS (w/2H Reflex) < 3 pg/mL (3.0-54.0)
[2022-08-08 21:14] VITALS: BP 128/88; PULSE 83; RESP 20; O2SAT 97
[2022-08-08 22:11] VITALS: BP 133/85; PULSE 84; RESP 20; O2SAT 97
[2022-08-08 22:36] LABS: Reflex Troponin-HS? (from REC) Y
== END 2022-08-08 22:16 | disposition home or self-care (01) ==
PROVIDERS: Emergency Provider Emergency Medicine; PCP Family Medicine; Visit Provider Emergency Medicine
DX: R07.9 Chest pain, unspecified (principal); M25.512 Pain in left shoulder
CPT/HCPCS: 71275; 80048; 84484; 85025; 93005; 99283; Q9967; A4216

== ENCOUNTER 2022-11-04 08:34 | Outpatient (CLI) | payer MEDICARE, OTHER, SELFPAY ==
[2022-11-08 18:07] LABS: Immunoglobulin A 136 mg/dL (87-352); Immunoglobulin E 4 IU/mL (6-495); Immunoglobulin G 646 mg/dL (586-1602); Immunoglobulin M 66 mg/dL (26-217)
[2022-11-09 13:07] LABS: Beef <0.10 kU/L (Class 0); Chocolate <0.10 kU/L (Class 0); Clam <0.10 kU/L (Class 0); Codfish <0.10 kU/L (Class 0); Corn <0.10 kU/L (Class 0); Egg, White <0.10 kU/L (Class 0); Egg, Whole <0.10 kU/L (Class 0); Milk (Cow) <0.10 kU/L (Class 0); Peanut <0.10 kU/L (Class 0); Pork <0.10 kU/L (Class 0); SCALLOP <0.10 kU/L (Class 0); SESAME SEED <0.10 kU/L (Class 0); Shrimp <0.10 kU/L (Class 0); Soybean <0.10 kU/L (Class 0); Walnut, (Food) <0.10 kU/L (Class 0); Wheat <0.10 kU/L (Class 0)
== END 2022-11-04 23:59 | disposition home or self-care (01) ==
PROVIDERS: PCP Family Medicine; Referring Provider Internal Medicine Gastroenterology; Visit Provider Internal Medicine Gastroenterology
DX: K44.9 Diaphragmatic hernia without obstruction or gangrene (principal); K21.9 Gastro-esophageal reflux disease without esophagitis; K52.9 Noninfective gastroenteritis and colitis, unspecified; R13.10 Dysphagia, unspecified
CPT/HCPCS: 36415; 82784; 82785; 86003; 86005

== ENCOUNTER → 2022-11-05 | Outpatient (CLI) | payer MEDICARE, OTHER, SELFPAY ==
--- NOTE | 2022-11-05 10:10 | RAD_ITS ---
EXAM: XR ABDOMEN, 1 VIEW CLINICAL INDICATION: KIDNEY STONE TECHNIQUE: Frontal supine view of the abdomen/pelvis. COMPARISON: 11/19/20 FINDINGS: LOWER THORAX: Lung bases are clear. GASTROINTESTINAL TRACT: Unremarkable. Non-obstructive. No bowel or stomach distention. ORGANS: Limited assessment for urolithiasis due to overlying stool and bowel gas. Therefore, recommend stone protocol CT for further investigation. No organomegaly. BONES/JOINTS: Degenerative changes of the spine. No unusual lytic or sclerotic lesions of bone. SOFT TISSUES: No acute pathology. VASCULATURE: Few vascular surgical clips in the pelvis. RAD/Abdomen Single View IMPRESSION: Limited assessment for urolithiasis due to overlying stool and bowel gas. Therefore, recommend stone protocol CT for further investigation. Electronically Signed: Heriberto Cisneros MD at 4:27 EDT ,
== END | disposition home or self-care (01) ==
LOC: RAD 10:05
PROVIDERS: PCP Family Medicine; Referring Provider Urology; Visit Provider Urology
DX: N20.0 Calculus of kidney (principal)
CPT/HCPCS: 74018

== ENCOUNTER → 2023-04-06 | Outpatient (CLI) | payer MEDICARE, OTHER, SELFPAY ==
--- NOTE | 2023-04-06 10:41 | BI_ITS ---
MAMMOGRAPHY - BILATERAL SCREENING REASON FOR EXAM: Female, 62 years old. Routine annual screening examination. PERTINENT HISTORY: Grandmother with breast cancer. Aunt with breast cancer. TECHNIQUE: Digital bilateral breast raghav (3D mammographic acquisition) in the CC and MLO projections. 2-D mediolateral oblique (MLO) and craniocaudad (CC) views of both breasts were obtained. CAD: Full Field Digital Mammography with Computer Added Detection was performed. COMPARISON: Comparison is made with prior outside examination dated February 12, 2021. FINDINGS: Breast Composition: There are scattered areas of fibroglandular density. There are no dominant masses or suspicious calcifications. Stable asymmetric breast tissue with more breast tissue is seen in the upper-outer quadrant of the right breast as compared to the left side. Stable benign-appearing bilateral axillary lymph nodes. No other significant abnormalities are identified. There has been no significant change since the prior study. BI/SCRN MAMM (CAD)W/RAGHAV BILAT IMPRESSION: Stable bilateral screening mammogram. Yearly follow-up mammogram recommended. (A) ASSESSMENT CATEGORY: BIRADS Category 2: Benign. A letter regarding these results will be sent to the patient by the facility within 30 days. Approximately 10% of breast cancers are not detected by mammography. A normal mammogram should not delay biopsy of a clinically suspicious abnormality. [id number] Electronically Signed: Brown House MD at 12:06 EDT ,
== END | disposition home or self-care (01) ==
LOC: OPBI 10:39
PROVIDERS: PCP Family Medicine; Referring Provider Family Medicine; Visit Provider Family Medicine
DX: Z12.31 Encounter for screening mammogram for malignant neoplasm of breast (principal); Z80.3 Family history of malignant neoplasm of breast
CPT/HCPCS: 77063; 77067

== ENCOUNTER → 2024-04-26 | Outpatient (CLI) | payer MEDICARE, OTHER, SELFPAY ==
--- NOTE | 2024-04-26 11:43 | NM_ITS ---
CLINICAL: 63-year-old female with history of postprandial abdominal bloating and diarrhea. SEMI-SOLID PHASE 99m Tc SULFUR COLLOID GASTRIC EMPTYING STUDY COMPARISON: None available FINDINGS: The patient was administered 1.1 mCi of 99m Tc sulfur colloid mixed with oatmeal and consumed per os. Image acquisitions in the anterior-posterior projections were obtained for 60 minutes. There is prompt visualization of the stomach. There is no gastroesophageal reflux identified. The T ? linear fit was calculated to be 28.72 minutes, (Normal: 12-56 minutes). NM/Gastric Emptying Study IMPRESSION: 1. NORMAL 99m Tc sulfur colloid semi-solid phase (oatmeal) gastric emptying imaging examination. A. There is normal and preserved semi-solid phase gastric emptying compared to normal controls. (Reba et al, J Nucl Med Tech 38: 186, 2010). Electronically Signed: Kike Diaz DO at 12:15 EST ,
== END | disposition home or self-care (01) ==
PROVIDERS: PCP Family Medicine; Referring Provider Internal Medicine Gastroenterology; Visit Provider Internal Medicine Gastroenterology
DX: K44.9 Diaphragmatic hernia without obstruction or gangrene (principal); K21.9 Gastro-esophageal reflux disease without esophagitis
CPT/HCPCS: 78264; A9541

== ENCOUNTER → 2024-05-03 | Outpatient (CLI) | payer MEDICARE, OTHER, SELFPAY ==
--- NOTE | 2024-05-03 12:54 | BD_ITS ---
STUDY: DUAL ENERGY X-RAY ABSORPTIOMETRY / DXA REASON FOR EXAM: Female, 63 years old. M810 TECHNIQUE: Bone Mineral Density (BMD) measurements of lumbar spine and bilateral hips were obtained. COMPARISON: None. FINDINGS: Lumbar Spine (L1-L4): g/cm2 (0.833) / T-score (-1.9) / Z-score (-0.4) Findings are suggestive of osteopenia with a moderate fracture risk. Left Femur Total: g/cm2 (0.918) / T-score (-0.2) / Z-score (0.8) Left Femoral Neck: g/cm2 (0.633) / T-score (-1.9) / Z-score (-0.6) Right Femur Total: g/cm2 (0.913) / T-score (-0.2) / Z-score (0.8) Right Femoral Neck: g/cm2 (0.656) / T-score (-1.7) / Z-score (-0.4) BD/Dexa Bone Density Study IMPRESSION: The patient is considered osteopenic as outlined below according to World Efe Organization (WHO) criteria with a moderate fracture risk. Reference Information: The T-score is the number of standard deviations above or below the standard which is normal for young adults at their peak bone mineral density. The World Health Organization (WHO) interprets the T-scores as follows: Above -1 Normal bone density Between -1 and -2.5 Osteopenia Equal to / or below -2.5 Osteoporosis As a practical clinical guideline, osteopenia may be graded as follows: Mild -1 through -1.5 Moderate -1.6 through -2.0 Severe -2.1 through -2.4 The Z-score is the number of standard deviations above or below age-matched controls. A Z-score of less than -1.5 would be considered abnormal. References: 1. NIH Osteoporosis and Related Bone Diseases www osteo.org 2. International Society for Clinical Densitometry www iscd.org 3. National Osteoporosis Foundation www nof.org Electronically Signed: Brown House MD at 15:26 EST ,
--- NOTE | 2024-05-03 12:54 | BI_ITS ---
MAMMOGRAPHY - BILATERAL SCREENING REASON FOR EXAM: Female, 63 years old. Routine annual screening examination. PERTINENT HISTORY: Grandmother with breast cancer. Aunts with breast cancer. TECHNIQUE: Digital bilateral breast raghav (3D mammographic acquisition) in the CC and MLO projections. 2-D mediolateral oblique (MLO) and craniocaudad (CC) views of both breasts were obtained. CAD: Full Field Digital Mammography with Computer Added Detection was performed. COMPARISON: Comparison is made with prior study April 06, 2023. FINDINGS: Breast Composition: There are scattered areas of fibroglandular density. There are no dominant masses or suspicious calcifications. Stable asymmetric breast tissue where more breast tissue is seen in the upper-outer quadrant of the right breast as compared to the left side. Stable small benign-appearing bilateral axillary lymph nodes. No other significant abnormalities are identified. There has been no significant change since the prior study. BI/SCRN MAMM (CAD)W/RAGHAV BILAT IMPRESSION: Stable bilateral screening mammogram. Yearly follow-up mammogram recommended. (A) ASSESSMENT CATEGORY: BIRADS Category 2: Benign. A letter regarding these results will be sent to the patient by the facility within 30 days. Approximately 10% of breast cancers are not detected by mammography. A normal mammogram should not delay biopsy of a clinically suspicious abnormality. [id number] Electronically Signed: Brown House MD at 14:40 EST ,
== END | disposition home or self-care (01) ==
LOC: OPBD 12:52
PROVIDERS: PCP Family Medicine; Referring Provider Family Medicine; Visit Provider Family Medicine
DX: Z12.31 Encounter for screening mammogram for malignant neoplasm of breast (principal); Z80.3 Family history of malignant neoplasm of breast; M81.0 Age-related osteoporosis without current pathological fracture
CPT/HCPCS: 77063; 77067; 77080

== ENCOUNTER → 2024-09-28 | Outpatient (CLI) | payer MEDICARE, OTHER, SELFPAY ==
--- NOTE | 2024-09-28 08:01 | US_ITS ---
PROCEDURE: ABD LIMITED W/ ELASTOGRAPHY REASON FOR EXAM: FATTY LIVER COMPARISON: Prior CT scan dated March 06, 2022. TECHNIQUE: Right upper quadrant abdominal ultrasound. [employer] Elast[employer] shear wave elastography for non-invasive assessment of liver tissue stiffness. [employer] EPIQ Elite. FINDINGS: LIVER: Size: Enlarged (hepatomegaly) Length: 18.1 cm Echotexture: Diffusely echogenic suggesting fatty infiltration Contour: Normal Lesions: None identified Elastography: EQI Med: 8.0 kPa EQI Med Kennedy: 1.6 m/s IQR/Med: 23 %* GALLBLADDER: Surgically absent. COMMON BILE DUCT: Normal it measures 6 mm.. PANCREAS: Normal Visualized portions of the right kidney are unremarkable. No right upper quadrant ascites. US/ABD Limited w/ Elastography IMPRESSION: MODERATE HEPATIC FIBROSIS Reference Values: SRU <1.37 m/s (5.7kPa): No to mild fibrosis 1.37 m/s - 2.2 m/s: Moderate to severe fibrosis >2.2 m/s (15kPa): Significant fibrosis / cirrhosis METAVIR Score F2 or higher: 1.34 m/s (5.7kPa) F3 or higher: 1.55 m/s (7.3kPa) F4: 1.80 m/s (10kPa) * If the IQR/Med is >30%, the variance in the measurements is a large and the a ccuracy of the measurement may be in question. Reading Location: [place] [id number]
[2024-09-28 08:37] LABS: Absolute Lymphocyte Count 2.63 X10^3/uL (0.83-4.51); Absolute Neutrophil Count 3.4 X10^3/uL (2.0-7.7); Basophil# 0.08 X10^3/uL; Basophil% 1.2 % (0-1); Eosinophil# 0.19 X10^3/uL; Eosinophils% 2.8 % (0-5); Hematocrit 43.9 % (37-47); Hemoglobin 14.4 g/dL (12.0-15.0); Lymphocyte # 2.63 X10^3/ul (0.83-4.51); Lymphocyte % 38.1 % (19-41); Mean Corp Hgb Conc 32.8 g/dL (32-36); Mean Corpuscular Hgb 28.6 pg (27.0-32.0); Mean Corpuscular Volume 87.3 fL (81-99); Mean Platelet Vol. 9.3 fl (6.2-12.0); Monocyte# 0.57 X10^3/uL; Monocyte% 8.3 % (0-10); NRBC Flagged by Analyzer 0 % (0-5); Neutrophil # 3.38 X10^3/uL (2.7-7.7); Neutrophil % 48.9 % (47-70); Platelet Count 314 K/mm3 (150-450); RBC Distribution Width CV 13.8 % (11.6-14.6); RBC Distribution Width SD 44.4 fl (35.1-43.9); Red Blood Count 5.03 M/mm3 (4.2-5.4); White Blood Count 6.9 K/mm3 (4.4-11.0)
[2024-09-28 09:28] LABS: ALB/GLOB Ratio 1.6 RATIO (0.9-2.4); AST(SGOT) 21 U/L (<=31); Alanine Aminotransfer ALT/SGPT 34 U/L (<=34); Albumin, Serum 3.8 g/dL (3.4-4.8); Alkaline Phosphatase 84 U/L (35-104); Anion Gap 14 (5-15); BUN 18 mg/dL (4-19); BUN/Creat Ratio 22.7 RATIO (10-20); CORTISOL AM 8.47 ug/dL (6.02-18.40); CPK Total, Creatine Kinase 126 U/L (24-195); Calcium,Total 8.9 mg/dL (7.6-11.0); Chloride 106 mmol/L (98-108); EST Glomerular Filtration Rate 84 (>60); Globulin 2.4 g/dL (2.2-4.2); Glucose 105 mg/dL (70-99); Potassium 3.6 mmol/L (3.3-5.1); Protein, Total 6.2 g/dL (5.9-8.4); Sodium Level 144 mmol/L (133-145); Total Bilirubin 0.45 mg/dL (0.00-1.30)
== END | disposition home or self-care (01) ==
LOC: US 07:49
PROVIDERS: PCP Family Medicine; Referring Provider Internal Medicine Gastroenterology; Visit Provider Internal Medicine Gastroenterology
DX: K76.0 Fatty (change of) liver, not elsewhere classified (principal); E66.9 Obesity, unspecified; E03.9 Hypothyroidism, unspecified
CPT/HCPCS: 36415; 76705; 76981; 80053; 82024; 82085; 82533; 82550; 82672; 82784; 83516; 84165; 84402; 84403; 84443; 85025; 86036; 86255; 86334; 86671

== ENCOUNTER → 2024-10-19 | Outpatient (CLI) | payer MEDICARE, OTHER, SELFPAY ==
[2024-10-19 14:57] LABS: Absolute Lymphocyte Count 1.78 X10^3/uL (0.83-4.51); Absolute Neutrophil Count 6.3 X10^3/uL (2.0-7.7); Basophil# 0.05 X10^3/uL; Basophil% 0.6 % (0-1); Eosinophil# 0.11 X10^3/uL; Eosinophils% 1.3 % (0-5); Hematocrit 43.7 % (37-47); Hemoglobin 14.4 g/dL (12.0-15.0); Lymphocyte # 1.78 X10^3/ul (0.83-4.51); Lymphocyte % 20.4 % (19-41); Mean Corpuscular Hgb 28.6 pg (27.0-32.0); Mean Corpuscular Volume 86.9 fL (81-99); Mean Platelet Vol. 9.8 fl (6.2-12.0); Monocyte# 0.49 X10^3/uL; Monocyte% 5.6 % (0-10); NRBC Flagged by Analyzer 0 % (0-5); Neutrophil # 6.25 X10^3/uL (2.7-7.7); Neutrophil % 71.8 % (47-70); Platelet Count 317 K/mm3 (150-450); RBC Distribution Width CV 13.7 % (11.6-14.6); RBC Distribution Width SD 43.5 fl (35.1-43.9); Red Blood Count 5.03 M/mm3 (4.2-5.4); White Blood Count 8.7 K/mm3 (4.4-11.0)
[2024-10-24 05:07] LABS: Alternaria tenuis <0.10 kU/L (Class 0); Ash, White <0.10 kU/L (Class 0); Aspergillus fumigatus <0.10 kU/L (Class 0); Bermuda Grass <0.10 kU/L (Class 0); Birch <0.10 kU/L (Class 0); Black Walnut <0.10 kU/L (Class 0); Cat Hair / Dander,Stand <0.10 kU/L (Class 0); Cedar, Mountain <0.10 kU/L (Class 0); Cladosporium herbarum <0.10 kU/L (Class 0); Cockroach, American <0.10 kU/L (Class 0); Cottonwood <0.10 kU/L (Class 0); D farinae Mite <0.10 kU/L (Class 0); D pteronyssinus <0.10 kU/L (Class 0); Dog Epithelia <0.10 kU/L (Class 0); Elm, American White <0.10 kU/L (Class 0); Immunoglobulin E 4 IU/mL (6-495); Maple/Box Elder <0.10 kU/L (Class 0); Mouse Urine <0.10 kU/L (Class 0); Mulberry, White <0.10 kU/L (Class 0); Oak, White <0.10 kU/L (Class 0); Pecan <0.10 kU/L (Class 0); Penicillium Notatum <0.10 kU/L (Class 0); Pigweed, Rough <0.10 kU/L (Class 0); Ragweed, Short/Common <0.10 kU/L (Class 0); Russian Thistle <0.10 kU/L (Class 0); Sheep Sorrel <0.10 kU/L (Class 0); Sycamore, American <0.10 kU/L (Class 0); Timothy Grass 0.26 kU/L (Class 0/I)
[2024-10-25 17:08] LABS: Aspirgillus flavus Negative (Neg:<1:1); Aspirgillus fumigatus Negative (Neg:<1:1); Aspirgillus niger Negative (Neg:<1:1); Immunoglobulin E 4 IU/mL (6-495)
== END | disposition home or self-care (01) ==
LOC: LAB 14:04
PROVIDERS: PCP Family Medicine; Referring Provider Internal Medicine Critical Care Medicine; Visit Provider Internal Medicine Critical Care Medicine
DX: R05.3 Chronic cough (principal)
CPT/HCPCS: 36415; 82785; 85025; 86003; 86606

== ENCOUNTER → 2024-11-08 | Outpatient (CLI) | payer MEDICARE, OTHER, SELFPAY | END | disposition home or self-care (01) | PROVIDERS: PCP Family Medicine; Referring Provider Internal Medicine Critical Care Medicine; Visit Provider Internal Medicine Critical Care Medicine | DX: R05.3 Chronic cough (principal) | CPT/HCPCS: 94060; 94726; 94729 ==

== ENCOUNTER → 2024-12-13 | Outpatient (CLI) | payer MEDICARE, OTHER, SELFPAY ==
[2024-12-13 13:56] LABS: AST(SGOT) 23 U/L (<=31); Alanine Aminotransfer ALT/SGPT 32 U/L (<=34); Albumin, Serum 4.0 g/dL (3.4-4.8); Alkaline Phosphatase 93 U/L (35-104); Anion Gap 9 (5-15); BUN 18 mg/dL (4-19); BUN/Creat Ratio 22.7 RATIO (10-20); Calcium,Total 9.1 mg/dL (7.6-11.0); Carbon Dioxide 27.1 mmol/L (21.0-32.0); Chloride 104 mmol/L (98-108); Cholesterol 195 mg/dL (<=200); Globulin 2.9 g/dL (2.2-4.2); Glucose 104 mg/dL (70-99); Low Density Lipoprotein Calc. 114 mg/dL; Potassium 5.1 mmol/L (3.3-5.1); Triglycerides 65 mg/dL; Very Low Density Lipoprotein 13 mg/dL (5-40); cholesterol:hdl ratio screen 2.87
== END | disposition home or self-care (01) ==
LOC: LAB 12:36
PROVIDERS: PCP Family Medicine; Referring Provider Family Medicine; Visit Provider Family Medicine
DX: E78.5 Hyperlipidemia, unspecified (principal)
CPT/HCPCS: 36415; 80053; 80061

== ENCOUNTER 2025-01-03 07:55 | Outpatient (RCR) | payer MEDICARE, OTHER, SELFPAY | END 2025-01-11 23:59 | LOC: NS 07:55 | PROVIDERS: PCP Family Medicine; Referring Provider Internal Medicine Gastroenterology; Visit Provider Internal Medicine Gastroenterology | DX: Z71.3 Dietary counseling and surveillance (principal); K21.9 Gastro-esophageal reflux disease without esophagitis; K52.9 Noninfective gastroenteritis and colitis, unspecified; K76.0 Fatty (change of) liver, not elsewhere classified | CPT/HCPCS: 97802 ==

== ENCOUNTER → 2025-01-15 | Outpatient (CLI) | payer MEDICARE, OTHER, SELFPAY | END | disposition home or self-care (01) | PROVIDERS: PCP Family Medicine; Referring Provider Nurse Practitioner Women's Health; Visit Provider Nurse Practitioner Women's Health | DX: R73.09 Other abnormal glucose (principal); E66.813 Obesity, class 3; Z68.41 Body mass index [BMI] 40.0-44.9, adult | CPT/HCPCS: 36415; 83036 ==

== ENCOUNTER → 2025-01-31 | Outpatient (CLI) | payer MEDICARE, OTHER, SELFPAY ==
--- NOTE | 2025-01-31 08:48 | US_ITS ---
PROCEDURE: ABD LIMITED W/ ELASTOGRAPHY REASON FOR EXAM: FATTY LIVER COMPARISON: Prior study dated September 28, 2024. TECHNIQUE: Right upper quadrant abdominal ultrasound. [employer] El[employer] shear wave elastography for non-invasive assessment of liver tissue stiffness. [employer] EPIQ Elite. FINDINGS: LIVER: Size: Unremarkable Length: 15.5 cm Echotexture: Normal Contour: Normal Lesions: None identified Elastography: EQI Med: 7.5 kPa EQI Med Kennedy: 1.57 m/s IQR/Med: 20.7 %* GALLBLADDER: Surgically absent. COMMON BILE DUCT: Normal measuring 5 mm . PANCREAS: Obscured by bowel gas. Visualized portions of the right kidney are unremarkable. No right upper quadrant ascites. US/ABD Limited w/ Elastography IMPRESSION: Moderate hepatic fibrosis. Status post cholecystectomy. Reference Values: SRU <1.37 m/s (5.7kPa): No to mild fibrosis 1.37 m/s - 2.2 m/s: Moderate to severe fibrosis >2.2 m/s (15kPa): Significant fibrosis / cirrhosis METAVIR Score F2 or higher: 1.34 m/s (5.7kPa) F3 or higher: 1.55 m/s (7.3kPa) F4: 1.80 m/s (10kPa) * If the IQR/Med is >30%, the variance in the measurements is a large and the a ccuracy of the measurement may be in question. Reading Location: [id number]
== END | disposition home or self-care (01) ==
LOC: OPUS 08:47
PROVIDERS: PCP Family Medicine; Referring Provider Internal Medicine Gastroenterology; Visit Provider Internal Medicine Gastroenterology
DX: K76.0 Fatty (change of) liver, not elsewhere classified (principal)
CPT/HCPCS: 91200; 76705; 76981

== ENCOUNTER 2025-02-05 13:00 | Outpatient (RCR) | payer MEDICARE, OTHER, SELFPAY | END 2025-02-11 23:59 | LOC: NS 13:00 | PROVIDERS: PCP Family Medicine; Referring Provider Internal Medicine Gastroenterology; Visit Provider Internal Medicine Gastroenterology | DX: Z71.3 Dietary counseling and surveillance (principal); K21.9 Gastro-esophageal reflux disease without esophagitis; K52.9 Noninfective gastroenteritis and colitis, unspecified; K76.0 Fatty (change of) liver, not elsewhere classified | CPT/HCPCS: 97803 ==

== ENCOUNTER → 2025-05-08 | Outpatient (CLI) | payer MEDICARE, OTHER, SELFPAY ==
--- NOTE | 2025-05-08 09:21 | US_ITS ---
PROCEDURE: ABD LIMITED W/ ELASTOGRAPHY REASON FOR EXAM: FATTY LIVER COMPARISON: Abdominal ultrasound 01/31/2025 TECHNIQUE: Procedure Code: [id number] Modality: US Procedure: ABD LIMITED W/ ELASTOGRAPHY Right upper quadrant abdominal ultrasound. [employer] ElastQ Imaging shear wave elastography for non-invasive assessment of liver tissue stiffness. [employer] EPIQ Elite. FINDINGS: LIVER: Length: 16.8 cm Echotexture: Diffusely echogenic suggesting fatty infiltration Contour: Normal Lesions: None identified Elastography: EQI Med: 6.3 kPa EQI Med Kennedy: 1.4 m/s IQR/Med: 18.1 %* GALLBLADDER: Surgically absent. COMMON BILE DUCT: Normal measuring 5 mm. PANCREAS: Obscured by bowel gas. Visualized portions of the right kidney demonstrate mild cortical thinning, unchanged. No right upper quadrant ascites. US/ABD Limited w/ Elastography IMPRESSION: Hepatic steatosis, with elastography findings suggesting [id number] fib rosis, similar to most recent ultrasound 01/31/2025. Reference Values: SRU <1.37 m/s (5.7kPa): No to mild fibrosis 1.37 m/s - 2.2 m/s: Moderate to severe fibrosis >2.2 m/s (15kPa): Significant fibrosis / cirrhosis METAVIR Score F2 or higher: 1.34 m/s (5.7kPa) F3 or higher: 1.55 m/s (7.3kPa) F4: 1.80 m/s (10kPa) * If the IQR/Med is >30%, the variance in the measurements is a large and the a ccuracy of the measurement may be in question. Reading Location: [id number]
[2025-05-08 11:42] LABS: AST(SGOT) 22 U/L (<=31); Alanine Aminotransfer ALT/SGPT 41 U/L (<=34); Albumin, Serum 4.0 g/dL (3.4-4.8); Alkaline Phosphatase 76 U/L (35-104); Anion Gap 12 (5-15); BUN 23 mg/dL (4-19); BUN/Creat Ratio 25.1 RATIO (10-20); Calcium,Total 9.3 mg/dL (7.6-11.0); Carbon Dioxide 25.7 mmol/L (21.0-32.0); Chloride 105 mmol/L (98-108); Globulin 2.3 g/dL (2.2-4.2); Glucose 93 mg/dL (70-99); Potassium 4.2 mmol/L (3.3-5.1)
[2025-05-08 11:44] LABS: CRP < 3.00 mg/L (0.0-3.0)
== END | disposition home or self-care (01) ==
LOC: US 09:07
PROVIDERS: PCP Family Medicine; Referring Provider Internal Medicine Gastroenterology; Visit Provider Internal Medicine Gastroenterology
DX: K76.0 Fatty (change of) liver, not elsewhere classified (principal)
CPT/HCPCS: 36415; 76705; 76981; 80053; 85652; 86140

== ENCOUNTER → 2025-05-24 | Outpatient (CLI) | payer MEDICARE, OTHER, SELFPAY ==
--- NOTE | 2025-05-24 15:15 | BI_ITS ---
EXAM: SCRN MAMM (CAD)W/RAGHAV BILAT DATE: 05/24/2025 CLINICAL HISTORY: F, Age 64 y/o , SCREENING FOR BREAST CANCER Grandmother with breast cancer. Aunts with breast cancer. TECHNIQUE: Procedure Code: [id number] Modality: MG Procedure: SCRN MAMM (CAD)W/RAGHAV BILAT COMPARISON: Prior exam(s) dated May 03, 2024.. FINDINGS: TISSUE DENSITY: There are scattered areas of fibroglandular density. Bilateral Breast Mammographic Findings: No significant masses, calcifications or other abnormalities are identified. Stable asymmetry of breast tissue were more breast tissue is seen in the upper-outer quadrant of the right breast as compared to the left side. No suspicious masses, areas of developing architectural distortion, or suspicious calcifications. There has been no significant interval change. BI/SCRN MAMM (CAD)W/RAGHAV BILAT IMPRESSION: Stable bilateral screening mammogram. OVERALL FINAL ASSESSMENT BI-RADS 2: BENIGN RECOMMENDATION: Routine annual follow-up in 1 Year Additional Recommendation none A letter with findings and recommendations will be mailed to the patient. Reading Location: [place] [id number]
== END | disposition home or self-care (01) ==
PROVIDERS: PCP Family Medicine; Referring Provider Nurse Practitioner Women's Health; Visit Provider Nurse Practitioner Women's Health
DX: Z12.31 Encounter for screening mammogram for malignant neoplasm of breast (principal)
CPT/HCPCS: 77063; 77067